=== PATIENT | female | born 1940 | race Caucasian/White ===

== ENCOUNTER 2017-12-01 08:56 | Emergency (ER) | payer OTHER ==
--- OUTSIDE RECORDS SUMMARY | 2017-12-01 08:59 | XMS REPORT | Clinical Summary ---
:1940 Author Organization [facility] Address [address] [place] [address] Care Team Providers Name Role Phone Brice Juan MD Primary Care Provider Unavailable Allergies Not on File Current Medications Not on file Active Problems Not on file Encounters Date Type Specialty Care Team Description 02/01/2017 Hospital Encounter Radiology Arian Robles MD Other specified injuries of lower back, initial encounter 02/01/2017 Hospital Encounter Radiology Arian Robels MD Other specified injuries of lower back, initial encounter 02/01/2017 Hospital Encounter Radiology Arian Robles MD Other specified injuries of lower back, initial encounter 01/31/2017 Procedure Pass Radiology 01/31/2017 Transcribe Orders Access Arian Robles MD Other specified injuries of lower back, initial encounter (Primary Dx) 12/07/2016 Hospital Encounter Radiology Daniel De Santiago Left wrist pain MD Landon 12/07/2016 Transcribe Orders Access Daniel De Santiago Left wrist pain ( Primary MD Landon Dx) after 11/30/2016 Social History Tobacco Use Types Packs/Day Years Used Date Never Assessed Sex Assigned at Date Recorded Not on file Last Filed Vital Signs Not on file Plan of Treatment Health Maintenance Due Date Last Done Comments SHINGRIX VACCINE (#1) 1989 ZOSTER VACCINE 1999 PNEUMOCOCCAL POLYSACCHARIDE VACCINE AGE 65 AND OVER 2004 PNEUMOCOCCAL-13 2004 INFLUENZA VACCINE 11/15/2017 Procedures Procedure Name Priority Date/Time Associated Diagnosis Comments MRI LUMBAR SPINE WO Routine 02/01/2017 8:37 AM Other specified Results for this CONTRAST CDT injuries of lower procedure are in back, initial the results encounter section. XR LUMBAR SPINE AP Routine 02/01/2017 7:45 AM Other specified Results for this LATERAL FLEXION CDT injuries of lower procedure are in AND EXTENSION back, initial the results encounter section. XR THORACIC SPINE 3 Routine 02/01/2017 7:45 AM Other specified Results for this VW CDT injuries of lower procedure are in back, initial the results encounter section. XR WRIST 3+ VW LEFT Routine 12/07/2016 12:33 PM Left wrist pain Results for this CDT procedure are in the results section. after 11/30/2016 Results MRI Lumbar Spine Wo Contrast (02/01/2017 8:37 AM) Narrative Performed At EXAMINATION:MRI LUMBAR SPINE WO CONTRAST [facility] CLINICAL HISTORY:S39.82XA Other specified injuries of lower backinitial encounter, LOW BACK INJURY COMPARISON:None. TECHNIQUE: Examination performed on a GE 3 Liza magnet Sagittal and axial scans obtained. Multiple pulse sequences utilized. A total of 379 images obtained. FINDINGS: There is a severe wedge compression at T12 there is marked depression of the superior endplate with vertebral plana deformity evident from mid body to anterior body level. No significant marrow edema is present in keeping with chronic injury. There is considerable kyphotic angulation epicenter at T11-T12 Remaining lumbar vertebral bodies are well-maintained without compression narrowing infiltration or edema. The conus is at L1 level. There is moderate impression on the thecal sac at T11-12. Increased signal within the cord in keeping with myelomalacia. No cord enlargement. L5-S1: No disc herniation. No central stenosis or foraminal encroachment. Mild bilateral facet hypertrophy. L4-5: No disc herniation. No central stenosis or foraminal encroachment. No significant facet hypertrophy. L3-4: No disc herniation. No central stenosis or foraminal encroachment. Slight bilateral facet hypertrophy. L2-3: No disc herniation. No central stenosis or foraminal encroachment. Slight bilateral facet hypertrophy. L1-2: No disc herniation. No central stenosis or foraminal encroachment. T12-L1: No disc herniation. No central stenosis or foraminal encroachment. T11-T12: Moderate posterior impression on the thecal sac secondary to 3.9 mm retropulsion superior aspect of the posterior vertebral body wall T12. There is resultant central stenosis with narrowing of the thecal sac to 8.2 mm. No focal disc herniation. No foraminal encroachment. IMPRESSION: Chronic severe compression injury at T12 with vertebral plana deformity. No marrow edema. 3.9 mm retropulsion posterior aspect of the vertebral body wall superiorly resulting in central spinal stenosis at 8.2 mm. 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 Marked kyphotic angulation at the centered at T11-12 secondary to the compression injury No other compressive abnormalities No disc herniation in the lumbar spine. No other areas of central stenosis. Mild spondylitic facet hypertrophy L3-4 and L2-3 [id number] Procedure Note Hm Interface, Radiology Results Incoming - 02/01/2017 9:05 AM CDT EXAMINATION: MRI LUMBAR SPINE WO CONTRAST CLINICAL HISTORY: S39.82XA Other specified injuries of lower back initial encounter, LOW BACK INJURY COMPARISON: None. TECHNIQUE: Examination performed on a GE 3 Liza magnet Sagittal and axial scans obtained. Multiple pulse sequences utilized. A total of 379 images obtained. FINDINGS: There is a severe wedge compression at T12 there is marked depression of the superior endplate with vertebral plana deformity evident from mid body to anterior body level. No significant marrow edema is present in keeping with chronic injury. There is considerable kyphotic angulation epicenter at T11-T12 Remaining lumbar vertebral bodies are well-maintained without compression narrowing infiltration or edema. The conus is at L1 level. There is moderate impression on the thecal sac at T11 -12. Increased signal within the cord in keeping with myelomalacia. No cord enlargement. L5-S1: No disc herniation. No central stenosis or foraminal encroachment. Mild bilateral facet hypertrophy. L4-5: No disc herniation. No central stenosis or foraminal encroachment. No significant facet hypertrophy. L3-4: No disc herniation. No central stenosis or foraminal encroachment. Slight bilateral facet hypertrophy. L2-3: No disc herniation. No central stenosis or foraminal encroachment. Slight bilateral facet hypertrophy. L1-2: No disc herniation. No central stenosis or foraminal encroachment. T12-L1: No disc herniation. No central stenosis or foraminal encroachment. T11-T12: Moderate posterior impression on the thecal sac secondary to 3.9 mm retropulsion superior aspect of the posterior vertebral body wall T12. There is resultant central stenosis with narrowing of the thecal sac to 8.2 mm. No focal disc herniation. No foraminal encroachment. IMPRESSION: Chronic severe compression injury at T12 with vertebral plana deformity. No marrow edema. 3.9 mm retropulsion posterior aspect of the vertebral body wall superiorly resulting in central spinal stenosis at 8.2 mm. 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 Marked kyphotic angulation at the centered at T11-12 secondary to the compression injury No other compressive abnormalities No disc herniation in the lumbar spine. No other areas of central stenosis. Mild spondylitic facet hypertrophy L3-4 and L2-3 [id number] Performing Organization Address [facility] Phone Number [facility] [address] [place] [address] XR Lumbar Spine Ap Lateral Flexion And Extension (02/01/2017 7:45 AM) Narrative Performed At EXAMINATION:XR LUMBAR SPINE AP LATERALFLEXION AND EXTENSION [facility] CLINICAL HISTORY:S39.82XA Other specified injuries of lower backinitial encounter, s39.82xa COMPARISON:None. FINDINGS: For review examination of the lumbar spine obtained. Standing AP, lateral, flexion, and extension views obtained. Severe anterior wedge compression deformity at T12 with near vertebral plana. There is marked kyphotic angulation at that level Diffuse underlying osteoporosis. No spondylolisthesis. No instability on flexion or extension IMPRESSION: Near vertebral plana deformity at T12 with marked kyphotic angulation at that level Diffuse underlying osteoporosis No spondylolisthesis Atherosclerosis [id number] Procedure Note Interface, Radiology Results Incoming - 02/01/2017 8:11 AM CDT EXAMINATION: XR LUMBAR SPINE AP LATERAL FLEXION AND EXTENSION CLINICAL HISTORY: S39.82XA Other specified injuries of lower back initial encounter, s39.82xa COMPARISON: None. FINDINGS: For review examination of the lumbar spine obtained. Standing AP, lateral, flexion, and extension views obtained. Severe anterior wedge compression deformity at T12 with near vertebral plana. There is marked kyphotic angulation at that level Diffuse underlying osteoporosis. No spondylolisthesis. No instability on flexion or extension IMPRESSION: Near vertebral plana deformity at T12 with marked kyphotic angulation at that level Diffuse underlying osteoporosis No spondylolisthesis Atherosclerosis [id number] Performing Organization Address [facility] Phone Number [facility] [address] [place] [address] XR Thoracic Spine 3 Vw (02/01/2017 7:45 AM) Narrative Performed At EXAMINATION:XR THORACIC SPINE 3 VW [facility] CLINICAL HISTORY:S39.82XA Other specified injuries of lower backinitial encounter, s29.82xa COMPARISON:None. FINDINGS: Standing 3 view examination of the thoracic spine performed. Patient is osteoporotic. Severe anterior wedge compression deformity with vertebral plana at T12. Marked kyphotic angulation at this level. Moderately severe anterior wedge compression deformity at T7 No lytic or blastic bone lesions Moderately large hiatal hernia Diffuse atherosclerosis No other compressive abnormality. Diffuse underlying osteoporosis. IMPRESSION: Marked kyphotic angulation epicentered at T12 where there is vertebral plana compressive deformity Moderate to severe compressive deformity with anterior wedging at T9 Underlying osteoporosis Atherosclerosis. Moderately large hiatal hernia. Humeral prosthesis left [id number] Procedure Note Interface, Radiology Results Incoming - 02/01/2017 8:16 AM CDT EXAMINATION: XR THORACIC SPINE 3 VW CLINICAL HISTORY: S39.82XA Other specified injuries of lower back initial encounter, s29.82xa COMPARISON: None. FINDINGS: Standing 3 view examination of the thoracic spine performed. Patient is osteoporotic. Severe anterior wedge compression deformity with vertebral plana at T12. Marked kyphotic angulation at this level. Moderately severe anterior wedge compression deformity at T7 No lytic or blastic bone lesions Moderately large hiatal hernia Diffuse atherosclerosis No other compressive abnormality. Diffuse underlying osteoporosis. IMPRESSION: Marked kyphotic angulation epicentered at T12 where there is vertebral plana compressive deformity Moderate to severe compressive deformity with anterior wedging at T9 Underlying osteoporosis Atherosclerosis. Moderately large hiatal hernia. Humeral prosthesis left [id number] Performing Organization Address City/State/Zipcode Phone Number [facility] [address] [place] [address] XR Wrist 3+ Vw Left (12/07/2016 12:33 PM) Narrative Performed At EXAMINATION:XR WRIST 3VW LEFT [facility] CLINICAL HISTORY:M25.532 Pain in left wrist, BONE PAINWRIST COMPARISON:None. Left wrist: AP, lateral views: The bones are severely and diffusely osteopenic. There is an apparent healed or healing mildly impacted distal radial fracture with some sclerosis along the fracture line. There is minimal associated soft tissue swelling. No other significant findings are noted. The bones are osteopenic. IMPRESSION: Healing fracture as noted. [id number] Procedure Note Hm Interface, Radiology Results Incoming - 12/07/2016 1:38 PM CDT EXAMINATION: XR WRIST 3 VW LEFT CLINICAL HISTORY: M25.532 Pain in left wrist, BONE PAIN WRIST COMPARISON: None. Left wrist: AP, lateral views: The bones are severely and diffusely osteopenic. There is an apparent healed or healing mildly impacted distal radial fracture with some sclerosis along the fracture line. There is minimal associated soft tissue swelling. No other significant findings are noted. The bones are osteopenic. IMPRESSION: Healing fracture as noted. [id number] Performing Organization Address City/State/Zipcode Phone Number [facility] [address] [place] [address] after 11/30/2016 Insurance Payer Benefit Plan / Group Subscriber ID Type Phone Address [facility] xxxxxxxxxxx [phone] [place], [place] [phone]
[2017-12-01 10:27] LABS: Urine Bacteria LOADED /HPF (<20); Urine Culture Reflex Order REFLEXED; Urine RBC <5 /HPF (NONE SEEN)
[2017-12-01 10:29] LABS: Urine Blood 1+ (NEG); Urine Glucose TRACE (NEG); Urine Protein 1+ (NEG)
--- NOTE | 2017-12-01 10:40 | ER ---
Nurse's Notes [facility] Name: Haydee De Jesus Age: 77 yrs Sex: Female : 1940 Arrival Date: 12/01/2017 Time: 08:59 Bed 16 Private MD: out of town, doctor Diagnosis: Cystitis Presentation: 12/01 09:14 Presenting complaint: Patient states: i feel i have UTI since Monday of this week, hj it godoy when i pee, denies fever and chills; reports taking Azo, and couldn't get an appointment to her PCP;. Transition of care: patient was not received from another setting of care. Onset of symptoms was December 01, 2017. Risk Assessment: Do you want to hurt yourself or someone else? Patient reports no desire to harm self or others. Initial Sepsis Screen: Does the patient meet any 2 criteria? No. Patient's initial sepsis screen is negative. Does the patient have a suspected source of infection? No. Patient's initial sepsis screen is negative. Care prior to arrival: None. 09:14 Method Of Arrival: Ambulatory 09:14 Acuity: JOYCELYN 4 hj Triage Assessment: 09:20 General: Appears in no apparent distress. uncomfortable, Behavior is calm, cooperative, hj appropriate for age. Pain: Complains of pain in suprapubic area. Historical: - Allergies: 09:18 Sulfa (Sulfonamide Antibiotics); hj - Home Meds: 09:18 pantoprazole 40 mg Oral TbEC 1 tab 2 times per day [Active]; Synthroid 50 mcg Oral tab hj 1 tab once daily [Active]; meloxicam 15 mg oral tab 1 tab once daily [Active]; metformin 500 mg Oral Tb24 1 tab 2 times per day [Active]; simvastatin 20 mg Oral tab 1 tab once daily [Active]; benazepril 10 mg oral tab 1 tab once daily [Active]; alendronate 70 mg/75 mL oral soln 75 mL once wkly [Active]; paroxetine HCl 10 mg oral tab 1 tab once daily [Active]; sucralfate 1 gram Oral tab 1 tab 4 times per day [Active]; 09:19 metoprolol tartrate 50 mg Oral tab 1 tab 2 times per day [Active]; omeprazole 20 mg hj Oral cpDR 1 cap once daily [Active]; - PMHx: 09:18 Diabetes - NIDDM; Hyperlipidemia; Hypertension; Hypothyroidism; hj - PSHx: 09:18 left arm; Appendectomy; bladder surgery; hj - Immunization history:: Adult Immunizations up to date. - Social history:: Smoking status: Patient/guardian denies using tobacco, Patient/guardian denies using alcohol. - Ebola Screening: : Patient negative for fever greater than or equal to 101.5 degrees Fahrenheit, and additional compatible Ebola Virus Disease symptoms Patient denies exposure to infectious person Patient denies travel to an Ebola-affected area in the 21 days before illness onset. Screenin:19 Abuse screen: Denies threats or abuse. Denies injuries from another. Nutritional hj screening: No deficits noted. Tuberculosis screening: No symptoms or risk factors identified. Fall Risk None identified. Assessment: 09:21 General: Appears in no apparent distress. uncomfortable, Behavior is calm, cooperative, hj appropriate for age. Pain: Complains of pain in pelvis and suprapubic area Pain currently is 5 out of 10 on a pain scale. Neuro: Level of Consciousness is awake, alert, obeys commands, Oriented to person, place, time, situation, Appropriate for age. Cardiovascular: Capillary refill < 3 seconds Patient's skin is warm and dry. Respiratory: Airway is patent Respiratory effort is even, unlabored, Respiratory pattern is regular, symmetrical. GI: No signs and/or symptoms were reported involving the gastrointestinal system. : Urine is Reports burning with urination, pain. EENT: No signs and/or symptoms were reported regarding the EENT system. Derm: No signs and/or symptoms reported regarding the dermatologic system. Musculoskeletal: No signs and/or symptoms reported regarding the musculoskeletal system. Vital Signs: 09:20 BP 145 / 69; Pulse 87; Resp 18; Temp 98.2(O); Pulse Ox 100% on R/A; Weight 50.8 kg; hj Height 5 ft. 4 in. (162.56 cm); Pain 5/10; 09:20 Body Mass Index 19.22 (50.80 kg, 162.56 cm) ED Course: 08:59 Patient arrived in ED. mr 08:59 out of town, doctor is Private Physician. mr 09:07 Toni Trimble MD is Attending Physician. 09:13 Raza, Jer, RN is Primary Nurse. 09:15 Triage completed. hj 09:20 Arm band placed on right wrist. hj 09:20 Patient has correct armband on for positive identification. Bed in low position. Call light in reach. Side rails up X 1. Adult w/ patient. 09:22 Urine Microscopic Only Sent. hj 10:55 No provider procedures requiring assistance completed. Patient did not have IV access hj during this emergency room visit. Administered Medications: No medications were administered Outcome: 10:40 Discharge ordered by . 10:56 Discharged to home ambulatory, with family. 10:56 Condition: stable 10:56 Discharge instructions given to patient, family, Instructed on discharge instructions, follow up and referral plans. medication usage, Demonstrated understanding of instructions, follow-up care, medications, Prescriptions given X 1. 10:58 Patient left the ED. Addendum: 12/04/2017 07:24 Addendum: Culture Results: Positive urine culture. No further action required. Bacteria b b sensitive to prescribed antibiotic. Signatures: Princess Rader Brenda, RN RN bb Joaquin, Henry, RN RN hj Starr, Gregory, MD MD
--- NOTE | 2017-12-01 10:41 | EDPHYS ---
Physician Documentation [facility] Name: Haydee De Jesus Age: 77 yrs Sex: Female : 1940 Arrival Date: 12/01/2017 Time: 08:59 Bed 16 Private MD: out of town, doctor ED Physician Toni Trimble HPI: 12/01 10:30 This 77 yrs old Female presents to ER via Ambulatory with complaints of gs Urinary Problem. 10:30 The patient presents with urinary symptoms, dysuria, urgency. Onset: The gs symptoms/episode began/occurred 2 day(s) ago. Modifying factors: the symptoms are aggravated by urinating. Associated signs and symptoms: Pertinent negatives: fever. Severity of symptoms: At their worst the symptoms were moderate, in the emergency department the symptoms are unchanged. The patient has experienced similar episodes in the past, a few times. Historical: - Allergies: 09:18 Sulfa (Sulfonamide Antibiotics); hj - Home Meds: 09:18 pantoprazole 40 mg Oral TbEC 1 tab 2 times per day [Active]; Synthroid 50 mcg Oral tab hj 1 tab once daily [Active]; meloxicam 15 mg oral tab 1 tab once daily [Active]; metformin 500 mg Oral Tb24 1 tab 2 times per day [Active]; simvastatin 20 mg Oral tab 1 tab once daily [Active]; benazepril 10 mg oral tab 1 tab once daily [Active]; alendronate 70 mg/75 mL oral soln 75 mL once wkly [Active]; paroxetine HCl 10 mg oral tab 1 tab once daily [Active]; sucralfate 1 gram Oral tab 1 tab 4 times per day [Active]; 09:19 metoprolol tartrate 50 mg Oral tab 1 tab 2 times per day [Active]; omeprazole 20 mg hj Oral cpDR 1 cap once daily [Active]; - PMHx: 09:18 Diabetes - NIDDM; Hyperlipidemia; Hypertension; Hypothyroidism; hj - PSHx: 09:18 left arm; Appendectomy; bladder surgery; hj - Immunization history:: Adult Immunizations up to date. - Social history:: Smoking status: Patient/guardian denies using tobacco, Patient/guardian denies using alcohol. - Ebola Screening: : Patient negative for fever greater than or equal to 101.5 degrees Fahrenheit, and additional compatible Ebola Virus Disease symptoms Patient denies exposure to infectious person Patient denies travel to an Ebola-affected area in the 21 days before illness onset. ROS: 10:30 All other systems are negative. gs Exam: 10:30 Head/Face: Normocephalic, atraumatic. Eyes: Pupils equal round and reactive to light, gs extra-ocular motions intact. Lids and lashes normal. Conjunctiva and sclera are non-icteric and not injected. Cornea within normal limits. Periorbital areas with no swelling, redness, or edema. ENT: Nares patent. No nasal discharge, no septal abnormalities noted. Tympanic membranes are normal and external auditory canals are clear. Oropharynx with no redness, swelling, or masses, exudates, or evidence of obstruction, uvula midline. Mucous membranes moist. Neck: Trachea midline, no thyromegaly or masses palpated, and no cervical lymphadenopathy. Supple, full range of motion without nuchal rigidity, or vertebral point tenderness. No Meningismus. Chest/axilla: Normal chest wall appearance and motion. Nontender with no deformity. No lesions are appreciated. Cardiovascular: Regular rate and rhythm with a normal S1 and S2. No gallops, murmurs, or rubs. Normal PMI, no JVD. No pulse deficits. Respiratory: Lungs have equal breath sounds bilaterally, clear to auscultation and percussion. No rales, rhonchi or wheezes noted. No increased work of breathing, no retractions or nasal flaring. Back: No spinal tenderness. No costovertebral tenderness. Full range of motion. Skin: Warm, dry with normal turgor. Normal color with no rashes, no lesions, and no evidence of cellulitis. MS/ Extremity: Pulses equal, no cyanosis. Neurovascular intact. Full, normal range of motion. Neuro: Awake and alert, GCS 15, oriented to person, place, time, and situation. Cranial nerves II-XII grossly intact. Motor strength 5/5 in all extremities. Sensory grossly intact. Cerebellar exam normal. Normal gait. 10:30 Constitutional: The patient appears alert, awake, comfortable. 10:30 Abdomen/GI: Palpation: mild abdominal tenderness, in the suprapubic area. Vital Signs: 09:20 BP 145 / 69; Pulse 87; Resp 18; Temp 98.2(O); Pulse Ox 100% on R/A; Weight 50.8 kg; Height 5 ft. 4 in. (162.56 cm); Pain 08/24; 09:20 Body Mass Index 19.22 (50.80 kg, 162.56 cm) MDM: 09:29 Patient medically screened. gs 10:30 Differential diagnosis: nonspecific abdominal pain, urinary tract infection. Data gs reviewed: vital signs, nurses notes. Counseling: I had a detailed discussion with the patient and/or guardian regarding: the historical points, exam findings, and any diagnostic results supporting the discharge/admit diagnosis, lab results. Response to treatment: the patient's symptoms have mildly improved after treatment, and as a result, I will discharge patient. 12/01 09:17 Order name: Urine Microscopic Only; Complete Time: 10:41 gs 12/01 09:34 Order name: Urine Dipstick--Ancillary (enter results); Complete Time: 10:41 ag 12/01 09:17 Order name: Urine Dipstick-Ancillary (obtain specimen); Complete Time: 09:22 12/01 10:29 Order name: Urine Culture EDMS Administered Medications: No medications were administered Disposition: 12/01/17 10:40 Discharged to Home. Impression: Cystitis. - Condition is Stable. - Discharge Instructions: Urinary Tract Infection, Adult. - Prescriptions for Macrobid 100 mg Oral Capsule - take 1 capsule by ORAL route every 12 hours for 7 days; 14 capsule. - Medication Reconciliation Form, Thank You Letter, Antibiotic Education, Prescription Opioid Use form. - Follow up: Private Physician; When: 2 - 3 days; Reason: Re-evaluation by your physician. Signatures: Dispatcher [facility] Jer Person RN RN hj Starr, Gregory, MD MD Corrections: (The following items were deleted from the chart) 10:58 10:40 12/01/2017 10:40 Discharged to Home. Impression: Cystitis. Condition is Stable. hj Forms are Medication Reconciliation Form, Thank You Letter, Antibiotic Education, Prescription Opioid Use. Follow up: Private Physician; When: 2 - 3 days; Reason: Re-evaluation by your physician. gs
[2017-12-01 11:07] VITALS: BP 145/69; TEMP 98.2; O2SAT 100
== END 2017-12-01 10:58 | disposition home or self-care (01) ==
LOC: ER 08:56
DX: N30.90 Cystitis, unspecified without hematuria (principal); I10 Essential (primary) hypertension; E11.9 Type 2 diabetes mellitus without complications; E03.9 Hypothyroidism, unspecified; E78.5 Hyperlipidemia, unspecified; Z88.2 Allergy status to sulfonamides
CPT/HCPCS: 81003; 81015; 87077; 87086; 87088; 87186; 99283

== ENCOUNTER 2018-07-06 09:27 | Emergency (ER) | payer OTHER ==
--- OUTSIDE RECORDS SUMMARY | 2018-07-06 09:30 | XMS REPORT | Clinical Summary ---
:1940 Author Organization [facility] Address [address] [place] [address] Care Team Providers Name Role Phone Brice Juan MD Primary Care Provider Unavailable Allergies Not on File Medications Not on file Active Problems Not on file Encounters Date Type Specialty Care Team Description 06/07/2018 Hospital Encounter Radiology Brice Juan MD Senile osteoporosis 06/05/2018 Transcribe Orders Access Brice Juan MD Senile osteoporosis ( Primary Dx) after 07/05/2017 Social History Tobacco Use Types Packs/Day Years Used Date Never Assessed Sex Assigned at Date Recorded Not on file Job Start Date Occupation Industry Not on file Not on file Not on file Travel History Travel Start Travel End No recent travel history available. Last Filed Vital Signs Not on file Plan of Treatment Health Maintenance Due Date Last Done Comments SHINGLES VACCINES (#1) 1989 65+ PNEUMOCOCCAL VACCINE (1 of 2 - PCV13) 2004 PNEUMOCOCCAL POLYSACCHARIDE VACCINE AGE 65 AND OVER 2004 INFLUENZA VACCINE 11/15/2017 Procedures Procedure Name Priority Date/Time Associated Diagnosis Comments BONE DENSITY Routine 06/07/2018 9:42 AM Senile osteoporosis Results for this ACCOUNTING SYSTEM EXPERT procedure are in the results section. after 07/05/2017 Results Bone Density (06/07/2018 9:42 AM ACCOUNTING SYSTEM EXPERT) Narrative Performed At EXAMINATION:BONE DENSITY [facility] CLINICAL HISTORY:M81.0 Age-related osteoporosis without current pathological fracture, M81.0.Osteoporosis screening. COMPARISON:None. The results of this study expressed as bone mineral density (BMD) were as follows: AP spine (L1- L4) BMD:0.602g/cm2 T-Score: -4.0 Right Femur (Total Mean): BMD: 0.347g/cm2 T-Score: -4.5 Left Femur (Total Mean): BMD: 0.354g/cm2 T-Score: -4.5 Impression: Osteoporosis lumbar spine and bilateral femurs [id number] A copy of this scans including a report detailing these results will follow. Note: The world health organization (WHO) has classified the patient's T-score as follows: Above (-1) as normal (-1) to (-2.5) as low (osteopenia) Below (-2.5) as abnormally low (osteoporosis, increased fracture risk) Procedure Note Interface, Radiology Results Incoming - 06/07/2018 12:04 PM ACCOUNTING SYSTEM EXPERT EXAMINATION: BONE DENSITY CLINICAL HISTORY: M81.0 Age-related osteoporosis without current pathological fracture, M81.0. Osteoporosis screening. COMPARISON: None. The results of this study expressed as bone mineral density (BMD) were as follows: AP spine (L1- L4) BMD: 0.602 g/cm2 T-Score: -4.0 Right Femur (Total Mean): BMD: 0.347 g/cm2 T-Score: -4.5 Left Femur (Total Mean): BMD: 0.354 g/cm2 T-Score: -4.5 Impression: Osteoporosis lumbar spine and bilateral femurs [id number] A copy of this scans including a report detailing these results will follow. Note: The world health organization (WHO) has classified the patient's T-score as follows: Above (-1) as normal (-1) to (-2.5) as low (osteopenia) Below (-2.5) as abnormally low (osteoporosis, increased fracture risk) Performing Organization Address City/State/Zipcode Phone Number [facility] [address] [place] [address] after 07/05/2017 Insurance Payer Benefit Plan / Group Subscriber ID Type Phone Address [facility] xxxxxxxxxxx (Home) [place] [address] Advance Directives Patient has advance care planning documents on file. For more information, please contact:[facility] [place] [id number]
--- NOTE | 2018-07-06 10:41 | RAD REPORT ---
EXAM DESCRIPTION: CT - Head C Spine Cap Wo Con - 07/06/2018 10:14 am TECHNIQUE: Computed axial tomography of the head and cervical spine was obtained. Coronal and sagitt al reconstruction was performed Computed axial tomography of the chest, abdomen and pelvis was obtained. Contrast was not requested. All CT scans are performed using dose optimization technique as appropriate and may include automated exposure control or mA/KV adjustment according to patient size. CLINICAL HISTORY: Head and neck injury with chest and abdominal pain status post fall COMPARISON: CT 2012 and 2016 FINDINGS: An intracranial bleed is not seen. Moderate low-density areas within periventricular, deep and subcor tical white matter unchanged probably ischemic changes secondary to small vessel disease. Old lacunar infarct left thalamus The ventricles are normal in caliber. An extra-axial fluid collection is not noted. . Fluid within the maxillary and ethmoid sinuses. Mucoperiosteal thickening sphenoid sinus. Acute and c hronic sinusitis noted A cervical fracture is not seen. No dislocation is noted. Spondylosis is present The evaluation of mediastinum, sowmya, vessels, solid organs and bowel are limited secondary to the lac k of contrast administration. A mediastinal hematoma is not noted. A pleural effusion is not seen. A lung contusion is not present. A moderate to large hiatal hernia The liver,spleen, pancreas, adrenals,kidneys and bladder do not demonstrate an acute traumatic injury Chronic compression fractures involving the vertebral bodies T7 and T12 IMPRESSION: 1. No acute intracranial abnormality is seen. 2. A cervical fracture is not visualized. If the patient continues have symptoms to suggest intracran ial/spinal cord pathology MRI be recommended 3. No traumatic abnormality involving the chest/abdomen/pelvis.
[2018-07-06 10:51] LABS: Absolute Lymphocytes (CBC) 2.4 K/uL (0.7-4.9); Absolute Monocytes 0.7 K/uL (0.1-1.3); Absolute Neutrophil 5.9 K/uL (1.8-8.0); Basophils % 0.9 % (0-1.3); Eosinophils % 6.7 % (0-4.4); Hematocrit 36.3 % (36.0-45.0); Lymphocytes % 24.2 % (15.3-44.8); MPV 6.5 fL (7.6-11.3); Monocytes % 7.5 % (3.3-12.3); RBC Red Blood Cell Count 4.02 M/uL (3.86-4.86)
[2018-07-06 11:09] LABS: Albumin 3.6 g/dL (3.4-5.0); Bilirubin Direct 0.1 mg/dL (0-0.2); Bilirubin Total 0.4 mg/dL (0.2-1.0); Protein, Total 8.3 g/dL (6.4-8.2)
--- NOTE | 2018-07-06 11:46 | EDPHYS ---
Physician Documentation [facility] Name: Haydee De Jesus Age: 78 yrs Sex: Female : 1940 Arrival Date: 07/06/2018 Time: 09:29 Bed 8 Private MD: ED Physician Chandra Lopez HPI: 07/06 10:18 This 78 yrs old Female presents to ER via Ambulatory with complaints of Fall kei Injury. 10:18 Details of fall: The patient fell from an upright position. Onset: The symptoms/episode kei began/occurred just prior to arrival. Associated injuries: The patient sustained injury to the head, upper back injury, injury to the low back, decreased range of motion, pain. Severity of symptoms: At their worst the symptoms were mild, moderate, in the emergency department the symptoms are unchanged. The patient has not experienced similar symptoms in the past. Historical: - Allergies: 09:37 Sulfa (Sulfonamide Antibiotics); iw - Home Meds: 09:37 alendronate 70 mg/75 mL Oral soln 75 mL once wkly [Active]; benazepril 10 mg Oral tab 1 iw tab once daily [Active]; meloxicam 15 mg Oral tab 1 tab once daily [Active]; metformin 500 mg Oral Tb24 1 tab 2 times per day [Active]; metoprolol tartrate 50 mg Oral tab 1 tab 2 times per day [Active]; omeprazole 20 mg Oral cpDR 1 cap once daily [Active]; pantoprazole 40 mg Oral TbEC 1 tab 2 times per day [Active]; paroxetine HCl 10 mg Oral tab 1 tab once daily [Active]; simvastatin 20 mg Oral tab 1 tab once daily [Active]; sucralfate 1 gram Oral tab 1 tab 4 times per day [Active]; Synthroid 50 mcg Oral tab 1 tab once daily [Active]; - PMHx: 09:37 Diabetes - NIDDM; Hyperlipidemia; Hypertension; Hypothyroidism; iw - PSHx: 09:37 left arm; Appendectomy; bladder surgery; iw - Immunization history: Last tetanus immunization:. - Social history:: Smoking status: . - Ebola Screening: : Patient denies travel to an Ebola-affected area in the 21 days before illness onset. - Family history:: not pertinent. ROS: 10:18 Constitutional: Negative for fever, chills, and weight loss, Eyes: Negative for injury, kei pain, redness, and discharge, ENT: Negative for injury, pain, and discharge, Neck: Negative for injury, pain, and swelling, Cardiovascular: Negative for chest pain, palpitations, and edema, Respiratory: Negative for shortness of breath, cough, wheezing, and pleuritic chest pain, Abdomen/GI: Negative for abdominal pain, nausea, vomiting, diarrhea, and constipation, : Negative for injury, bleeding, discharge, and swelling, MS/Extremity: Negative for injury and deformity, Skin: Negative for injury, rash, and discoloration, Neuro: Negative for headache, weakness, numbness, tingling, and seizure, Psych: Negative for depression, anxiety, suicide ideation, homicidal ideation, and hallucinations, Allergy/Immunology: Negative for hives, rash, and allergies, Endocrine: Negative for neck swelling, polydipsia, polyuria, polyphagia, and marked weight changes, Hematologic/Lymphatic: Negative for swollen nodes, abnormal bleeding, and unusual bruising. Exam: 10:27 Constitutional: This is a well developed, well nourished patient who is awake, alert, kei and in no acute distress. Head/Face: Normocephalic, atraumatic. Eyes: Pupils equal round and reactive to light, extra-ocular motions intact. Lids and lashes normal. Conjunctiva and sclera are non-icteric and not injected. Cornea within normal limits. Periorbital areas with no swelling, redness, or edema. ENT: Nares patent. No nasal discharge, no septal abnormalities noted. Tympanic membranes are normal and external auditory canals are clear. Oropharynx with no redness, swelling, or masses, exudates, or evidence of obstruction, uvula midline. Mucous membranes moist. Neck: Trachea midline, no thyromegaly or masses palpated, and no cervical lymphadenopathy. Supple, full range of motion without nuchal rigidity, or vertebral point tenderness. No Meningismus. Chest/axilla: Normal chest wall appearance and motion. Nontender with no deformity. No lesions are appreciated. Cardiovascular: Regular rate and rhythm with a normal S1 and S2. No gallops, murmurs, or rubs. Normal PMI, no JVD. No pulse deficits. Respiratory: Lungs have equal breath sounds bilaterally, clear to auscultation and percussion. No rales, rhonchi or wheezes noted. No increased work of breathing, no retractions or nasal flaring. Abdomen/GI: Soft, non-tender, with normal bowel sounds. No distension or tympany. No guarding or rebound. No evidence of tenderness throughout. Female : Normal external genitalia. Skin: Warm, dry with normal turgor. Normal color with no rashes, no lesions, and no evidence of cellulitis. MS/ Extremity: Pulses equal, no cyanosis. Neurovascular intact. Full, normal range of motion. Neuro: Awake and alert, GCS 15, oriented to person, place, time, and situation. Cranial nerves II-XII grossly intact. Motor strength 5/5 in all extremities. Sensory grossly intact. Cerebellar exam normal. Normal gait. Psych: Awake, alert, with orientation to person, place and time. Behavior, mood, and affect are within normal limits. 10:27 Back: pain, that is mild, ROM is painful, normal spinal alignment noted, CVA tenderness, is noted on the left, vertebral tenderness, is not appreciated, muscle spasm, is appreciated in the left low back and left mid back. Vital Signs: 09:37 BP 160 / 81; Pulse 98; Resp 16; Temp 98.1; Pulse Ox 98% on R/A; Weight 50.35 kg; Height iw 5 ft. (152.40 cm); Pain 10/10; 10:45 BP 182 / 72; Pulse 76; Resp 16; Pulse Ox 96% on R/A; hb 12:01 BP 162 / 79; Pulse 88; Resp 17; Pulse Ox 99% on R/A; tw2 09:37 Body Mass Index 21.68 (50.35 kg, 152.40 cm) Castillo Coma Score: 09:37 Eye Response: spontaneous(4). Verbal Response: oriented(5). Motor Response: obeys commands(6). Total: 15. Trauma Score (Adult): 09:37 Eye Response: spontaneous(1); Verbal Response: oriented(1); Motor Response: obeys commands(2); Systolic BP: > 89 mm Hg(4); Respiratory Rate: 10 to 29 per min(4); [place] Score: 15; Trauma Score: 12 MDM: 09:40 Patient medically screened. [facility] 10:27 Data reviewed: vital signs, nurses notes, lab test result(s), EKG, radiologic studies. [facility] 07/06 09:48 Order name: Basic Metabolic Panel; Complete Time: 11:45 [facility] 07/06 09:48 Order name: CBC with Diff; Complete Time: 11:03 [facility] 07/06 09:48 Order name: Creatinine for Radiology; Complete Time: 11:45 [facility] 07/06 09:48 Order name: Type And Screen; Complete Time: 11:45 [facility] 07/06 09:48 Order name: Lipase; Complete Time: 11:45 [facility] 07/06 09:48 Order name: LFT's; Complete Time: 11:45 [facility] 07/06 09:48 Order name: CT Traumagram (Head C Spine CAP wo con); Complete Time: 11:03 [facility] 07/06 09:48 Order name: Labs collected and sent; Complete Time: 10:41 [facility] 07/06 09:48 Order name: Urine Culture [facility] 07/06 09:48 Order name: Urine Dipstick-Ancillary (obtain specimen); Complete Time: 10:41 [facility] 07/06 11:55 Order name: Urine Dipstick--Ancillary (enter results) [id number] Administered Medications: 10:50 Drug: NS 0.9% 500 ml Route: IV; Rate: bolus; Site: right antecubital; hb 12:03 Follow up: Response: No adverse reaction; IV Status: Completed infusion; IV Intake: tw2 500ml 11:56 Not Given (Duplicate Order; discharged ordered.): NS 0.9% 1000 ml IV at 125 ml/hr tw2 continuous Disposition: 07/06/18 11:46 Discharged to Home. Impression: Fall due to bumping against object, Contusion of back wall of thorax, Type 2 diabetes mellitus. - Condition is Stable. - Discharge Instructions: Contusion, Type 2 Diabetes Mellitus, Diagnosis, Adult, Contusion, [id number], Fall Prevention in the Home, Arht-da-Bdpr, Type 2 Diabetes Mellitus, Diagnosis, Adult, [id number]. - Prescriptions for Tylenol- Codeine #3 300-30 mg Oral Tablet - take 1 tablet by ORAL route every 6 hours As needed; 26 tablet. - Medication Reconciliation Form, Thank You Letter, Antibiotic Education, Prescription Opioid Use form. - Follow up: Private Physician; When: 2 - 3 days; Reason: Recheck today's complaints, Continuance of care, Re-evaluation by your physician. - Problem is new. - Symptoms have improved. Signatures: Dispatcher [employer] [facility] Chandra Lopez MD MD cha Williams, Irene, RN RN iw Baxter, Heather, RN RN hb Wise, Tara, RN RN tw2 Corrections: (The following items were deleted from the chart) 11:46 11:46 07/06/2018 11:46 Discharged to Home. Impression: Fall due to bumping against kei object; Contusion of back wall of thorax. Condition is Stable. Discharge Instructions: Contusion, Contusion, Mexv-zp-Pqjh, Fall Prevention in the Home, Otne-gn-Alhb. Prescriptions for Tylenol-Codeine #3 300-30 mg Oral Tablet - take 1 tablet by ORAL route every 6 hours As needed; 26 tablet. and Forms are Medication Reconciliation Form, Thank You Letter, Antibiotic Education, Prescription Opioid Use. Follow up: Private Physician; When: 2 - 3 days; Reason: Recheck today's complaints, Continuance of care, Re-evaluation by your physician. Problem is new. Symptoms have improved. [facility] 12:01 11:05 [id number] ordered. [facility] 12:02 11:46 07/06/2018 11:46 Discharged to Home. Impression: Fall due to bumping against tw2 object; Contusion of back wall of thorax; Type 2 diabetes mellitus. Condition is Stable. Discharge Instructions: Contusion, Contusion, [id number], Fall Prevention in the Home, Ijva-ai-Madf. Prescriptions for Tylenol-Codeine #3 300-30 mg Oral Tablet - take 1 tablet by ORAL route every 6 hours As needed; 26 tablet. and Forms are Medication Reconciliation Form, Thank You Letter, Antibiotic Education, Prescription Opioid Use. Follow up: Private Physician; When: 2 - 3 days; Reason: Recheck today's complaints, Continuance of care, Re-evaluation by your physician. Problem is new. Symptoms have improved. [facility]
--- NOTE | 2018-07-06 11:46 | ER ---
Nurse's Notes [facility] Name: Haydee De Jesus Age: 78 yrs Sex: Female : 1940 Arrival Date: 07/06/2018 Time: 09:29 Bed 8 Private MD: Diagnosis: Fall due to bumping against object;Contusion of back wall of thorax;Type 2 diabetes mellitus Presentation: 07/06 09:33 Presenting complaint: Patient states: was knocked over by a big dog and fell to her iw bottom, also hit against a wall, now has pain to left side, left hip, and ribs, hit head on wall, denies LOC, not on blood thinners, ambulatory, injury occurred on Monday. Care prior to arrival: None. Mechanism of Injury: Fall from standing position. Trauma event details: Injury occurred in the [facility]. 09:33 Acuity: JOYCELYN 4 iw 09:33 Method Of Arrival: Ambulatory iw 09:35 Trauma event details: Injury occurred: July 04, 2018. iw 09:38 Transition of care: patient was not received from another setting of care. Onset of iw symptoms was July 04, 2018. Risk Assessment: Do you want to hurt yourself or someone else? Patient reports no desire to harm self or others. Initial Sepsis Screen: Does the patient meet any 2 criteria? No. Patient's initial sepsis screen is negative. Does the patient have a suspected source of infection? No. Patient's initial sepsis screen is negative. Trauma Activation: Not Applicable Physician: ED Physician; Name: ; Notified At: ; Arrived At: Physician: General Surgeon; Name: ; Notified At: ; Arrived At: Physician: Radiology; Name: ; Notified At: ; Arrived At: Physician: Respiratory; Name: ; Notified At: ; Arrived At: Physician: Lab; Name: ; Notified At: ; Arrived At: Historical: - Allergies: 09:37 Sulfa (Sulfonamide Antibiotics); iw - Home Meds: 09:37 alendronate 70 mg/75 mL Oral soln 75 mL once wkly [Active]; benazepril 10 mg Oral tab 1 iw tab once daily [Active]; meloxicam 15 mg Oral tab 1 tab once daily [Active]; metformin 500 mg Oral Tb24 1 tab 2 times per day [Active]; metoprolol tartrate 50 mg Oral tab 1 tab 2 times per day [Active]; omeprazole 20 mg Oral cpDR 1 cap once daily [Active]; pantoprazole 40 mg Oral TbEC 1 tab 2 times per day [Active]; paroxetine HCl 10 mg Oral tab 1 tab once daily [Active]; simvastatin 20 mg Oral tab 1 tab once daily [Active]; sucralfate 1 gram Oral tab 1 tab 4 times per day [Active]; Synthroid 50 mcg Oral tab 1 tab once daily [Active]; - PMHx: 09:37 Diabetes - NIDDM; Hyperlipidemia; Hypertension; Hypothyroidism; iw - PSHx: 09:37 left arm; Appendectomy; bladder surgery; iw - Immunization history: Last tetanus immunization:. - Social history:: Smoking status: . - Ebola Screening: : Patient denies travel to an Ebola-affected area in the 21 days before illness onset. - Family history:: not pertinent. Screenin:42 Abuse screen: Denies injuries from another. Nutritional screening: No deficits noted. tw2 Tuberculosis screening: No symptoms or risk factors identified. Fall Risk Secondary diagnosis (15 points) impaired mobility. Assessment: 09:44 General: Appears in no apparent distress. well groomed, Behavior is calm, cooperative, tw2 appropriate for age. Pain: Complains of pain in LEFT shoulder, ribs, and hip. Neuro: Level of Consciousness is awake, alert, obeys commands, Oriented to person, place, time, situation. Cardiovascular: Patient's skin is warm and dry. 10:30 Reassessment: Patient appears in no apparent distress at this time. No changes from hb previously documented assessment. Patient and/or family updated on plan of care and expected duration. Pain level reassessed. Patient is alert, oriented x 3, equal unlabored respirations, skin warm/dry/pink. 11:05 Reassessment: Pt up to bathroom via wheelchair with nurse. hb 12:00 Reassessment: Patient appears in no apparent distress at this time. No changes from tw2 previously documented assessment. Patient and/or family updated on plan of care and expected duration. Pain level reassessed. Patient is alert, oriented x 3, equal unlabored respirations, skin warm/dry/pink. Vital Signs: 09:37 BP 160 / 81; Pulse 98; Resp 16; Temp 98.1; Pulse Ox 98% on R/A; Weight 50.35 kg; Height iw 5 ft. (152.40 cm); Pain 10/10; 10:45 BP 182 / 72; Pulse 76; Resp 16; Pulse Ox 96% on R/A; hb 12:01 BP 162 / 79; Pulse 88; Resp 17; Pulse Ox 99% on R/A; tw2 09:37 Body Mass Index 21.68 (50.35 kg, 152.40 cm) iw [place] Coma Score: 09:37 Eye Response: spontaneous(4). Verbal Response: oriented(5). Motor Response: obeys iw commands(6). Total: 15. Trauma Score (Adult): 09:37 Eye Response: spontaneous(1); Verbal Response: oriented(1); Motor Response: obeys iw commands(2); Systolic BP: > 89 mm Hg(4); Respiratory Rate: 10 to 29 per min(4); Castillo Score: 15; Trauma Score: 12 ED Course: 09:29 Patient arrived in ED. as 09:35 Triage completed. iw 09:38 Patient maintains SpO2 saturation greater than 95% on room air. iw 09:40 Chandra Lopez MD is Attending Physician. kei 09:41 Esthela Preciado RN is Primary Nurse. tw2 09:42 Arm band placed on. tw2 09:43 Bed in low position. Call light in reach. quality assurance monitor final on. Pulse ox on. NIBP on. tw2 Warm blanket given. 10:09 CT completed. Patient tolerated procedure well. Patient moved to CT via wheelchair. sj Patient moved back from CT. 10:14 CT Traumagram (Head C Spine CAP wo con) In Process Unspecified. EDMS 10:41 Inserted saline lock: 20 gauge in right forearm, using aseptic technique. Blood ms collected. 12:01 No provider procedures requiring assistance completed. IV discontinued, intact, tw2 bleeding controlled, No redness/swelling at site. Pressure dressing applied. Administered Medications: 10:50 Drug: NS 0.9% 500 ml Route: IV; Rate: bolus; Site: right antecubital; hb 12:03 Follow up: Response: No adverse reaction; IV Status: Completed infusion; IV Intake: tw2 500ml 11:56 Not Given (Duplicate Order; discharged ordered.): NS 0.9% 1000 ml IV at 125 ml/hr tw2 continuous Intake: 12:03 IV: 500ml; Total: 500ml. tw2 Outcome: 11:46 Discharge ordered by . kei 12:01 Discharged to home via wheelchair, with significant other. tw2 12:01 Condition: stable 12:01 Discharge instructions given to patient, significant other, Instructed on discharge instructions, follow up and referral plans. no drinking with medication, no driving heavy equipment, medication usage, incentive spirometer use Demonstrated understanding of instructions, follow-up care, medications, Prescriptions given X 1. 12:02 Patient left the ED. tw2 Addendum: 07/09/2018 07:48 Addendum: Culture Results: Positive urine culture. No further action required. Other: i w culture report reviewed by Dr. Lopez, pt asymptomatic, no further orders, pt to follow up with PCP. Patient was not prescribed antibiotics at discharge. Report given to JO for further evaluation and then to knockout machine operator for follow up with patient. Signatures: Dispatcher [employer] EDMS Chandra Lopez MD MD cha Jones, Bindu Hirsch Irene, RN RN Princess Jacome ms, Heather, RN RN hb Wise, Tara, RN RN tw2 Corrections: (The following items were deleted from the chart) 07/06 09:36 09:33 Presenting complaint: Patient states: was knocked over by a big dog and fell to iw her bottom, also hit against a wall, now has pain to left side, left hip, and ribs, hit head on wall, denies LOC, not on blood thinners, ambulatory iw
[2018-07-06 13:28] VITALS: TEMP 98.1
[2018-07-06 13:31] VITALS: BP 162/79; O2SAT 99
[2018-07-06 13:52] LABS: Urine Blood TRACE (NEG); Urine Glucose NEGATIVE (NEG); Urine Protein NEGATIVE (NEG); Urine Specific Gravity 1.015 (1.005-1.030)
== END 2018-07-06 12:02 | disposition home or self-care (01) ==
LOC: ER 09:27
DX: S20.229A Contusion of unspecified back wall of thorax, initial encounter (principal); W19.XXXA Unspecified fall, initial encounter; Y93.9 Activity, unspecified; Y92.9 Unspecified place or not applicable; Z88.2 Allergy status to sulfonamides; I10 Essential (primary) hypertension; E11.9 Type 2 diabetes mellitus without complications; E03.9 Hypothyroidism, unspecified; E78.5 Hyperlipidemia, unspecified
CPT/HCPCS: 36415; 70450; 71250; 72125; 80048; 80076; 81003; 83690; 85025; 86850; 86900; 86901; 87077; 87086; 87088; 87186; 96360; 99285

== ENCOUNTER 2019-11-23 11:33 | Emergency (ER) | payer OTHER ==
--- OUTSIDE RECORDS SUMMARY | 2019-11-23 11:36 | XMS REPORT | Continuity of Care Document ---
:1940 Author Organization [facility] t Address [address] [place] [address] Care Team Providers Name Role Phone Yessica SHERMAN Primary Care Physician Trever Robles MD Attending Clinician Payers Payer Name Policy Type Policy Number Effective Date Expiration Date S meagan [id number] xxxxxxxxxxx 1995 [place] sdkalvamy13/ 00:00:00 [employer] 04/1994-Prese ntMilitary Problems This patient has no known problems. Allergies, Adverse Reactions, Alerts This patient has no known allergies or adverse reactions. Social History Social Habit Start Date Stop Date Quantity Comments Source Sex Assigned At Shira stodavon Meeks Medications This patient has no known medications. Procedures Procedure Date / Time Performed Performing Clinician [facility] e MRI THORACIC SPINE WO 2019-10-21 17:28:59 Arian Robles on [employer] CONTRAST XR LUMBAR SPINE 2 OR 3 2019-10-21 16:41:52 Arian Robles VW MRI LUMBAR SPINE WO 2019-10-15 10:48:58 Arian Robles [employer] CONTRAST XR LUMBAR SPINE AP 2019-10-15 09:38:32 Arian Robles LATERAL FLEXION AND EXTENSION Plan of Care Planned Activity Planned Date Details Comments Source Future Scheduled 2019-11-16 INFLUENZA VACCINE Kayli mays [employer] Test 00:00:00 [code = INFLUENZA VACCINE] Future Scheduled 2004 65+ PNEUMOCOCCAL Epifanio [employer] Test 00:00:00 VACCINE (1 of 2 - PCV13) [code = 65+ PNEUMOCOCCAL VACCINE (1 of 2 - PCV13)] Future Scheduled 1989 SHINGLES VACCINES (#1) H ester [employer] Test 00:00:00 [code = SHINGLES VACCINES (#1)] Encounters Start End Encounter Admission Attending Care Care Encounter Source Date/Time Date/Time Type Type Clinicians Facility Department ID 2019-10-21 2019-10-21 Outpatient [facility] [id number] [place] 00:00:00 00:00:[address] 2019-10-21 2019-10-21 Outpatient [facility] [id number] [place] 00:00:00 00:00:[address] 2019-10-15 2019-10-15 Outpatient [facility] [id number] [place] 00:00:00 00:00:[address] 2019-10-15 2019-10-15 Outpatient [facility] [id number] [place] 00:00:00 00:00:[address] Results Test Description Test Time Test Comments Results Result [facility] e Comments MRI Thoracic [facility] [place] Spine Wo [address] Contrast 17:47:07 10/21/2019 5:50 PM CDTEXAMINATION: MRI THORACIC SPINE WO CONTRASTCLINICAL HISTORY: M54.14 Radiculopathy thoracic region, M54.6 Pain in thoracic spine, THORACIC RADICULOPATHY & PAINCOMPARISON: None.TECHNIQUE:Multip lanar MRI imaging without IV Gadolinium was performed.IMPRESSION: Acute severe compression fracture of T9 vertebral body with more than 50% central height loss and minimal retropulsion with no canal compromise. The fracture appears to be amenable for image guided cement augmentation if clinically warranted.Chronic severe compression deformity with vertebra plana involving T7 and T12 vertebral body. There is ankylosis and fusion between the T12 compression fracture and T11 vertebral body. There is no interval change.Diffuse demineralization of the bone compatible with osteopenia/osteoporos is.There is no significant thoracic canal stenosis or foraminal compromise. The thoracic spinal cord demonstrates normal contour and signal with no focal lesion.[facility]-[id number] XR [facility] Sp[facility] Vw [address] 16:44:01 10/21/2019 4:47 PM CDTEXAMINATION: XR LUMBAR SPINE 2 OR 3 VWCLINICAL HISTORY: M54.14 Radiculopathy thoracic region, M54.6 Pain in thoracic spine, THORACIC RADICULOPATHY & PAINCOMPARISON: October 15, 2019IMPRESSION: There is no change in the alignment or in the grade 3 focal compression fracture deformity of T12.There is stable scoliosis to the right centered at L1-2.There is stable diffuse demineralization. [facility]-[id number] MRI Lumbar Spine 2019-09-18 Hm Jean-Paul Hester on Wo Contrast 0 Radiology Results Method ist 10:57:04 - 10/15/2019 11:00 AM CDTEXAMINATION: MRI LUMBAR SPINE WO CONTRASTCLINICAL HISTORY: M54.5 Low back pain, LOW BACK PAINCOMPARISON: MRI lumbar spine 02/01/2017TECHNIQUE: Multiplanar multisequence nonenhanced MRI examination was performed of the Lumbar spine.FINDINGS:The last fully formed disc is designated as L5-S1.Stable severe compression fracture of the T12 vertebrae with associated kyphotic deformity with Magana angle measuring 50 degrees from the superior endplate of T11 to the inferior endplate of L1. Stable retropulsion of the superior endplate resulting in mild to moderate spinal canal narrowing. Ankylosis of the anterior aspect of the T12 vertebrae with T11.Mild exaggeration of the normal lumbar lordosis. Conus medullaris terminates at L1-L2. No suspicious osseous lesion or bone marrow edema.L1-L2: No significant posterior disc disease or spinal canal stenosis. Patent bilateral neural foramina.L2-L3: No significant posterior disc disease or spinal canal stenosis. Patent bilateral neural foramina.L3-L4: No significant posterior disc disease or spinal canal stenosis. Patent bilateral neural foramina.L4-L5: Trace retrolisthesis. No significant posterior disc disease or spinal canal stenosis. Patent bilateral neural foramina.L5-S1: No significant posterior disc disease or spinal canal stenosis. Patent bilateral neural foramina. Trace grade 1 anterolisthesis measuring 2 mm and question of chronic L5 pars defects.No significant posterior disc disease, spinal canal or neural foraminal stenosis at other visualized levels.IMPRESSION: Stable exam compared with 02/01/2017.[id number] XR Lumbar Spine 2019-09-18 Hm Kayli Hester n Ap Lateral [address] Flexion And 10:11:21 Incoming - 10/15/2019 Extension 10:14 AM CDTStudy:XR LUMBAR SPINE AP LATERAL FLEXION AND EXTENSIONHistory:M54. 5 Low back pain, LOW BACK PAINCOMPARISON:MRI lumbar spine February 01, 2017IMPRESSION:4 views of the lumbar spine to include flexion and extension.Mineralizat ion is diffusely decreased. There is a right convex scoliosis at the lumbar junction. There is some exaggeration of the lumbar lordosis similar to the prior exam with stable chronic compression deformity of the T12 vertebral body. The lumbar vertebral body heights are within normal limits. No subluxations or induced listhesis are seen. Mild disc space loss present at L1-2. Remaining disc spaces are within normal limits. There is atherosclerosis of the abdominal aorta. Overlying soft tissues otherwise unremarkable.[facility]-[id number]
--- OUTSIDE RECORDS SUMMARY | 2019-11-23 11:36 | XMS REPORT | Clinical Summary ---
:1940 Author Organization [facility] Address [address] [place] [address] Care Team Providers Name Role Phone Brice Juan MD Primary Care Provider Allergies Not on File Medications Not on file Active Problems Not on file Encounters Date Type Specialty Care Team Description 10/21/2019 Hospital Encounter Radiology Travis, Ray Trever, Radi culopathy, thoracic region; Pain in thoraci c spine 10/21/2019 Hospital Encounter Radiology Travis, Ray Trever, Radi culopathy, thoracic region; MD Pain in thoraci c spine 10/21/2019 Travel 10/17/2019 Transcribe Orders Access Travis, Ray Trever, Radic ulopathy, thoracic region (Primary Dx); Pain in thoraci c spine 10/15/2019 Hospital Encounter Radiology Travis, Ray Trever, Low back pain 10/15/2019 Hospital Encounter Radiology Travis, Ray Trever, Low back pain MD 10/15/2019 Travel 10/10/2019 Travel 10/10/2019 Transcribe Orders Access Travis, Ray Trever, Low b ack pain (Primary Dx) MD after 11/22/2018 Social History Tobacco Use Types Packs/Day Years [...] VACCINE (1 of 2 - PCV13) 2004 INFLUENZA VACCINE 11/16/2019 Procedures Procedure Name Priority Date/Time Associated Diagnosis Comme nts MRI THORACIC SPINE STAT 10/21/2019 5:28 PM Radiculopathy, Results for this WO CONTRAST CDT thoracic region procedure are in Pain in thoracic the results spine section. XR LUMBAR SPINE 2 STAT 10/21/2019 4:41 PM Radiculopathy, R esults for this OR 3 VW CDT thoracic region procedure are in Pain in thoracic the results spine section. MRI LUMBAR SPINE WO Routine 10/15/2019 10:48 AM Low back pain Results for this CONTRAST CDT procedure are i n the results section. XR LUMBAR SPINE AP Routine 10/15/2019 9:38 AM Low back pain R esults for this LATERAL FLEXION CDT procedure a re in AND EXTENSION the results section. after 11/22/2018 Results MRI Thoracic Spine Wo Contrast (10/21/2019 5:28 PM CDT) Specimen Narrative Performed At EXAMINATION: MRI THORACIC SPINE WO CON TRAST [facility] CLINICAL HISTORY: M54.14 Radiculopathy thoracic re gion, M54.6 Pain in thoracic spine, THORACIC RADICULOPATH Y & PAIN COMPARISON: None. TECHNIQUE: Multiplanar MRI imaging without IV Alexander olinium was performed. IMPRESSION: Acute severe compression fracture of T9 vertebral body with more than 50% central height loss and minimal retropulsion with no canal compromise. The fracture appears to be amenable for im age guided cement augmentation if clinically warranted. Chronic severe compression deformity with vertebra tracy na involving T7 and T12 vertebral body. There is ankylosis and fusion between the T12 compression fracture and T11 vertebral body. There is no interval change. Diffuse demineralization of the bone compatible with osteopenia/osteoporosis. There is no significant thoracic canal stenosis or for aminal compromise. The thoracic spinal cord demonstrates normal contour a nd signal with no focal lesion. [facility]-[id number] Procedure Note Hm Interface, Radiology Results Incoming - 10/21/2019 5:50 PM CDT EXAMINATION: MRI THORACIC SPINE WO CONTRAST CLINICAL HISTORY: M54.14 Radiculopathy thoracic region, M54.6 Pain in thoracic spine, THORACIC RADICULOPATHY & PAIN COMPARISON: None. TECHNIQUE: Multiplanar MRI imaging without IV Gado linium was performed. IMPRESSION: Acute severe compression fracture of T9 vertebral body with more than 50% central height loss and minimal retropulsion with no canal compromise. The fracture appears to be amenable for image guided cement augmentation if clinically warranted. Chronic severe compression deformity wit h vertebra plana involving T7 and T12 vertebral body. There is ankylosis and fusion between the T12 compression fracture and T11 vertebral body. There is no interval change. Diffuse demineralization of the bone com patible with osteopenia/osteoporosis. There is no significant thoracic canal s tenosis or foraminal compromise. The thoracic spinal cord demonstrates normal contour and signal with no focal lesion. [facility]-[id number] Performing Organization Address [facility] Phone Number [facility] [address] [place] [address] XR Lumbar Spine 2 Or 3 Vw (10/21/2019 4:41 PM CDT) Specimen Narrative Performed At EXAMINATION: XR LUMBAR SPINE 2 OR 3 VW [facility] CLINICAL HISTORY: M54.14 Radiculopathy thoracic re gion, M54.6 Pain in thoracic spine, THORACIC RADICULOPATH Y & PAIN COMPARISON: October 15, 2019 IMPRESSION: There is no change in the alignment or in the grade 3 focal compression fracture deformity of T12. There is stable scoliosis to the right c entered at L1-2. There is stable diffuse demineralization . [facility]-[id number] Procedure Note Hm Interface, Radiology Results Incoming - 10/21/2019 4:47 PM CDT EXAMINATION: XR LUMBAR SPINE 2 OR 3 VW CLINICAL HISTORY: M54.14 Radiculopathy thoracic region, M54.6 Pain in thoracic spine, THORACIC RADICULOPATHY & PAIN COMPARISON: October 15, 2019 IMPRESSION: There is no change in the alignment or i n the grade 3 focal compression fracture deformity of T12. There is stable scoliosis to the right c entered at L1-2. There is stable diffuse demineralization . [facility]-[id number] Performing Organization Address [facility] Phone Number [facility] [address] [place] [address] MRI Lumbar Spine Wo Contrast (10/15/2019 10:48 AM CDT) Specimen Narrative Performed At EXAMINATION: MRI LUMBAR SPINE WO CONTRAS T [facility] CLINICAL HISTORY: M54.5 Low back pain, L OW BACK PAIN COMPARISON: MRI lumbar spine 7 TECHNIQUE: Multiplanar multisequence nonenhanced MRI e xamination was performed of the Lumbar spine. FINDINGS: The last fully formed disc is designated as L5-S1. Stable severe compression fracture of the T12 vertebra e with associated kyphotic deformity with Magana angle measuring 50 degree s from the superior endplate of T11 to the inferior endplate of L 1. Stable retropulsion of the superior endplate re sulting in mild to moderate spinal canal narrowing. Ankylosis of the anterior aspect of the T12 vertebrae with T11. Mild exaggeration of the normal lumbar lordosis. Conus medullaris terminates at L1-L2. No suspicious osseo us lesion or bone marrow edema. L1-L2: No significant posterior disc disease or spinal canal stenosis. Patent bilateral neural foramina. L2-L3: No significant posterior disc disease or spinal canal stenosis. Patent bilateral neural foramina. L3-L4: No significant posterior disc disease or spinal canal stenosis. Patent bilateral neural foramina. L4-L5: Trace retrolisthesis. No significant posterior disc disease or spinal canal stenosis. Patent bilatera l neural foramina. L5-S1: No significant posterior disc disease or spinal canal stenosis. Patent bilateral neural foramina. Trace grade 1 ante rolisthesis measuring 2 mm and question of chronic L 5 pars defects. No significant posterior disc disease, spinal canal or neural foraminal stenosis at other visualized levels. IMPRESSION: Stable exam compared with 02/01/2017. [id number] Procedure Note Hm Interface, Radiology Results Incoming - 10/15/2019 11:00 AM CDT EXAMINATION: MRI LUMBAR SPINE WO CONTRAST CLINICAL HISTORY: M54.5 Low back pain, L OW BACK PAIN COMPARISON: MRI lumbar spine 02/01/2017 TECHNIQUE: Multiplanar multisequence non enhanced MRI examination was performed of the Lumbar spine. FINDINGS: The last fully formed disc is designated as L5-S1. Stable severe compression fracture of th e T12 vertebrae with associated kyphotic deformity with Magana angle measuring 50 degrees from the superior endplate of T11 to the inferior endplate of L1. Stable retropulsion of the superior endplate resulting in mild to moderate spinal canal narrowing. Ankylosis of the anterior aspect of the T12 vertebrae with T11. Mild exaggeration of the normal lumbar l ordosis. Conus medullaris terminates at L1-L2. No suspicious osseous lesion or bone marrow edema. L1-L2: No significant posterior disc dis ease or spinal canal stenosis. Patent bilateral neural foramina. L2-L3: No significant posterior disc dis ease or spinal canal stenosis. Patent bilateral neural foramina. L3-L4: No significant posterior disc dis ease or spinal canal stenosis. Patent bilateral neural foramina. L4-L5: Trace retrolisthesis. No signific ant posterior disc disease or spinal canal stenosis. Patent bilateral neural foramina. L5-S1: No significant posterior disc dis ease or spinal canal stenosis. Patent bilateral neural foramina. Trace grade 1 anterolisthesis measuring 2 mm and question of chronic L5 pars defects. No significant posterior disc disease, s alden canal or neural foraminal stenosis at other visualized levels. IMPRESSION: Stable exam compared with 02/01/2017. [id number] Performing Organization Address City/State/Zipcode Phone Number [facility] [address] [place] [address] XR Lumbar Spine Ap Lateral Flexion And Extension (10/15/2019 9:38 AM CDT) Specimen Narrative Performed At Study:XR LUMBAR SPINE AP LATERAL FLEXI ON AND EXTENSION [facility] History:M54.5 Low back pain, LOW BACK PA IN COMPARISON:MRI lumbar spine February 01, 2017 IMPRESSION: 4 views of the lumbar spine to include f lexion and extension. Mineralization is diffusely decreased. There is a righ t convex scoliosis at the lumbar junction. There is some exaggeration of the lumbar lordosis similar to the prior exam with stable chronic compression deformity of the T12 vertebral body. The lumbar vertebral body heights are within normal limits. No tyson bluxations or induced listhesis are seen. Mild disc space loss prese nt at L1-2. Remaining disc spaces are within normal limits. There is atherosclerosis of the abdominal aorta. Overlying soft t issues otherwise unremarkable. [facility]-[id number] Procedure Note Interface, Radiology Results Incoming - 10/15/2019 10:14 AM CDT Study:XR LUMBAR SPINE AP LATERAL FLEXION AND EXTENSION History:M54.5 Low back pain, LOW BACK PA IN COMPARISON:MRI lumbar spine February 01, 2017 IMPRESSION: 4 views of the lumbar spine to include f lexion and extension. Mineralization is diffusely decreased. T here is a right convex scoliosis at the [...] atherosclerosis of the abdominal aorta. Overlying soft t issues otherwise unremarkable. [id number] Performing Organization Address City/State/Zipcode Phone Number [facility] [address] [facility] 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
[2019-11-23 12:25] LABS: Absolute Lymphocytes (CBC) 1.6 K/uL (0.7-4.9); Basophils % 0.4 % (0-1.3); Hematocrit 41.1 % (36.0-45.0); MPV 6.8 fL (7.6-11.3); RBC Red Blood Cell Count 4.45 M/uL (3.86-4.86)
[2019-11-23 12:40] LABS: Potassium 4.1 mmol/L (3.5-5.1)
--- NOTE | 2019-11-23 12:45 | RAD REPORT ---
EXAM DESCRIPTION: RAD - Chest Single View - 11/23/2019 12:30 pm CLINICAL HISTORY: fall, head/chest/abd/flank pain;Blunt chest trauma COMPARISON: CT trauma study June 2018 portable chest February 2017 TECHNIQUE: AP portable chest image was obtained 11/23/2019 12:30 pm . FINDINGS: Patient has a known large hiatal hernia filling a significant portion of the midline lower chest. Baseline interstitial fibrotic changes noted as well. Severity of interstitial disease could mask early edema or infiltrate. Overall left base opacification is not clearly different from the com parison imaging. Heart size is prominent but stable. Vasculature within normal limits. No pneumothorax identified. No large pleural effusions seen. No acute aortic finding. Aortic calcifications are seen. Bones are osteopenic. Patient has evidence for old rib deformity on the left also seen on the [address] No clearly displaced left-side rib fractures seen. Angulation deformities of the posterior right seventh eighth ribs are noted. These are not clearly seen on comparison imaging. Nondisplaced f ractures are possible. Correlation is needed with any posterolateral mid chest rib pain. IMPRESSION: Possible nondisplaced fractures of the right seventh and eighth ribs. Correlation is nee ded with any posterolateral right mid chest pain symptoms. Portable exam limitations in osteopenia could obscure additional fractures. No pneumothorax. Patient has significant baseline interstitial fibrotic lung disease.
--- NOTE | 2019-11-23 13:32 | RAD REPORT ---
EXAM DESCRIPTION: CT - Head C Spine Cap W Con - 11/23/2019 1:09 pm CLINICAL HISTORY: PAIN COMPARISON: Head C Spine Cap Wo Con dated 07/06/2018 TECHNIQUE: Axial [address] head images were obtained. Axial [address] cervical spine images were obtaine d with sagittal and coronal reconstruction images reviewed. During dynamic enhancement of 100mL non-i onic contrast, axial 5 mm images of the chest, abdomen and pelvis were obtained. Biphasic technique p erformed of the abdomen and pelvis. All CT scans are performed using dose optimization technique as appropriate and may include automated exposure control or mA/KV adjustment according to patient size. FINDINGS: No intracranial hemorrhage, mass or edema. No midline shift or abnormal fluid collection. Patient has prominent atrophy and chronic ischemic change. Ventricles are in proportion to the volume loss. Arterial and physiologic calcifications are present. Mastoid air cells are clear. Air-fluid le patsy in the left maxillary sinus is present. No additional findings that would indicate acute sinus wa ll fracture. Patient has a small left frontal scalp hematoma with underlying frontal bone intact. Asy mmetry is created by significant head tilt within the scanner. CT cervical spine imaging shows normal height. Cervical lordosis is accentuated due to thoracic findi ngs. Normal alignment of the vertebrae. Minimal disc space narrowing at C5-6 with posterior endplate spurring. No significant degree of foraminal encroachment. Facet degenerative changes are present. No paraspinal mass or hematoma seen. Central canal detail is inherently limited. Concerns for traumatic disc herniation or traumatic cord injury can be further addressed with MR imaging. CT chest shows no pneumothorax, pulmonary contusion or pleural fluid collection. No mediastinal hemat lui and the aorta and pulmonary arteries are unremarkable. No chest will mass or abnormal axillary fi nding. Posterior left eleventh rib fracture is present very minimally displaced. No other acute fract ure confirmed. There are old fracture deformity seen on the left. Patient has scarring and atelectasi s in the left base. Right atrium and ventricle are enlarged slightly. No pericardial effusion. Patie nt has a large hiatal hernia with approximately 50% of the stomach in the chest. Herniated portion co ntains fluid. There is fluid within a dilated esophagus. Patient may have presbyesophagus with reflux . Esophageal wall thickening or mass not identified. CT abdomen and pelvis show no injury to solid abdominal viscera. Gallbladder and biliary tree are unr emarkable. No bowel injury or significant finding. No free air, free fluid or abnormal stranding. No urinary bladder abnormality. Degenerative and osteopenic changes are present throughout the skeleton. 80% compression fracture def ormities of T7 and T12 are stable from June 2018. There is a delete select 70% compression fracture of the T9 body new from June 2018. An acute fracture related this event cannot be excluded though fi ndings gently favor chronicity. The posterior wall protrudes into the central canal causing mild cent ral spinal stenosis. No pathologic component suspected. Kyphosis is accentuated. No significant vascular finding. IMPRESSION: Prominent atrophy and chronic ischemic change with no hemorrhage or acute intracranial f inding. The left maxillary sinus air-fluid level is believed to be sinus disease. No additional findi ngs to indicate sinus wall fracture. Cervical spine degenerative change present as detailed. No acute findings seen. Posterior left eleventh rib fracture near the vertebral column. This is minimally displaced. No pneum othorax, pleural fluid collection or pulmonary contusion. No traumatic injuries in the abdomen and pelvis. Patient has a large hiatal hernia with 50% of the st omach intrathoracic. There is fluid within the dilated esophagus without mass identifiable. This is s uspected to be presbyesophagus with reflux. Approximately 70% T9 compression fracture new from June 2018. This is probably remote from the preci pitating event; however, fracture related to the current fall is not excluded.
--- NOTE | 2019-11-23 13:47 | ER ---
Nurse's Notes [facility] Name: Haydee De Jesus Age: 79 yrs Sex: Female : 1940 Arrival Date: 11/23/2019 Time: 11:36 Bed 5 Private MD: Diagnosis: Fracture of one rib, left side Presentation: 11/22 11:41 Chief complaint: Patient states: "I fell on , I was leaning over the toilet and aa5 hit my head on the wall". Bruising noted to left side of forehead, denies LOC. Reports left lower rib cage pain, pt states 'I vomited last night after I took a pill", abd tender to LUQ. 11:41 Coronavirus screen: Client denies travel out of the [place] in the last 14 days. At this aa5 time, the client does not indicate any symptoms associated with coronavirus-19. Ebola Screen: Patient negative for fever greater than or equal to 101.5 degrees Fahrenheit, and additional compatible Ebola Virus Disease symptoms. Initial Sepsis Screen: Does the patient meet any 2 criteria? No. Patient's initial sepsis screen is negative. Does the patient have a suspected source of infection? No. Patient's initial sepsis screen is negative. Risk Assessment: Do you want to hurt yourself or someone else? Patient reports no desire to harm self or others. Onset of symptoms was November 2019. 11:41 Acuity: JOYCELYN 3 aa5 11:41 Method Of Arrival: Wheelchair aa5 Triage Assessment: 11:45 General: Appears in no apparent distress. comfortable, Behavior is cooperative, bp appropriate for age, anxious. Pain: Complains of pain in forehead and abdomen. EENT: No deficits noted. Neuro: Level of Consciousness is awake, alert, obeys commands, Oriented to person, place, time, situation. Cardiovascular: No deficits noted. Respiratory: No deficits noted. GI: Reports upper abdominal pain. : No signs and/or symptoms were reported regarding the genitourinary system. Derm: No deficits noted. Musculoskeletal: No deficits noted. Historical: - Allergies: 11:48 Sulfa (Sulfonamide Antibiotics); aa5 - PMHx: 11:48 Diabetes - NIDDM; Hyperlipidemia; Hypertension; Hypothyroidism; Osteoporosis; T8, T9 aa5 vertebrae fx.; - PSHx: 11:48 left arm; Appendectomy; bladder surgery; aa5 - Immunization history:: Adult Immunizations up to date. - Family history:: not pertinent. - Social history:: Smoking status: Patient denies any tobacco usage or history of. - Hospitalizations: : No recent hospitalization is reported. Screenin:45 Abuse screen: Denies threats or abuse. Denies injuries from another. Nutritional bp screening: No deficits noted. Tuberculosis screening: No symptoms or risk factors identified. Fall Risk None identified. Assessment: 11:45 General: SEE TRIAGE NOTE. bp 12:14 Reassessment: PT REMAINS NEURO INTACT. CT PENDING. bp 13:29 Reassessment: ALL CURRENT ORDERS COMPLETED, RESULTS PENDING FOR DISPO. NO CHANGE IN PT bp NEURO STATUS. 14:10 Reassessment: PT D/C HOME VIA W/C WITH FAMILY, DX WITH RIB FX. bp Vital Signs: 11:41 BP 150 / 89; Pulse 107; Resp 16 S; Temp 98.4(O); Pulse Ox 95% on R/A; aa5 12:15 BP 138 / 93; Pulse 105; Resp 17; Pulse Ox 96% ; bp 13:29 BP 124 / 78; Pulse 102; Resp 18; Pulse Ox 93% ; bp ED Course: 11:36 Patient arrived in ED. as 11:41 Arm band placed on Patient placed in an exam room, on a stretcher. aa5 11:42 Anam Schaefer MD is Attending Physician. rn 11:45 Patient has correct armband on for positive identification. Bed in low position. Call bp light in reach. Side rails up X2. 11:56 Triage completed. aa5 12:00 Irvin Carmona, NIHARIKA is Primary Nurse. bp 12:14 Inserted saline lock: 22 gauge in right antecubital area, using aseptic technique. bp Blood collected. 13:11 CT completed. Patient moved back from CT. bq 14:10 No provider procedures requiring assistance completed. IV discontinued, intact, bp bleeding controlled, No redness/swelling at site. Pressure dressing applied. Administered Medications: No medications were administered Outcome: 13:47 Discharge ordered by . rn 14:10 Discharged to home via wheelchair, with family. bp 14:10 Condition: stable 14:10 Discharge instructions given to patient, family, Instructed on discharge instructions, follow up and referral plans. Demonstrated understanding of instructions, follow-up care. 14:11 Patient left the ED. bp Signatures: Mariza Gallardo Amelia as Nieto, Roman, MD MD rn Soraida Shook RN RN aa5 Irvin Carmona RN RN bp
--- NOTE | 2019-11-23 13:47 | EDPHYS ---
Physician Documentation [facility] Name: Haydee De Jesus Age: 79 yrs Sex: Female : 1940 Arrival Date: 11/23/2019 Time: 11:36 Bed 5 Private MD: ED Physician Anam Schaefer HPI: 11/22 11:52 This 79 yrs old Female presents to ER via Unassigned with complaints of Fall rn Injury - l sided pain. 11:52 Details of fall: The patient fell from seated position, toilet. Onset: The rn symptoms/episode began/occurred 2 day(s) ago. Associated injuries: The patient sustained injury to the head, injury to the chest, injury to the abdomen. Severity of symptoms: At their worst the symptoms were mild, in the emergency department the symptoms are unchanged. The patient has experienced similar episodes in the past. Reports multiple falls in past, + most recent with spinal fractures, here today 2 days after fall, seated, fell while trying to get onto toilet, reports bruised on left side, vomited once last night, no LOC, no blood thinner. Reports most of pain is left ribs and upper abdomen. . Historical: - Allergies: 11:48 Sulfa (Sulfonamide Antibiotics); aa5 - PMHx: 11:48 Diabetes - NIDDM; Hyperlipidemia; Hypertension; Hypothyroidism; Osteoporosis; T8, T9 aa5 vertebrae fx.; - PSHx: 11:48 left arm; Appendectomy; bladder surgery; aa5 - Immunization history:: Adult Immunizations up to date. - Family history:: not pertinent. - Social history:: Smoking status: Patient denies any tobacco usage or history of. - Hospitalizations: : No recent hospitalization is reported. ROS: 11:52 Constitutional: Negative for fever, chills, and weight loss, Eyes: Negative for injury, rn pain, redness, and discharge, Neck: Negative for injury, pain, and swelling, Cardiovascular: + chest pain Respiratory: Negative for shortness of breath, cough, wheezing, and pleuritic chest pain, Abdomen/GI: + left sided abd pain, + vomited once Back: Negative for injury and pain, MS/Extremity: Negative for injury and deformity, Skin: + bruising Neuro: Negative for headache, weakness, numbness, tingling, and seizure. Exam: 11:52 Constitutional: This is a well developed, well nourished patient who is awake, alert, rn and in no acute distress. Head/Face: + healing bruise to left frontal bone, no laceration ENT: NO oral trauma Neck: No spinal tenderness Chest/axilla: + mild tenderness left lateral chest wall with ecchymosis, no crepitus Cardiovascular: Regular rate and rhythm. No pulse deficits. Respiratory: No increased work of breathing, no retractions or nasal flaring. Abdomen/GI: soft, + left upper abd tenderness, no masses MS/ Extremity: Pulses equal, no cyanosis. Neurovascular intact. Full, normal range of motion. Equal circumference. Neuro: Awake and alert, GCS 15 Vital Signs: 11:41 BP 150 / 89; Pulse 107; Resp 16 S; Temp 98.4(O); Pulse Ox 95% on R/A; aa5 12:15 BP 138 / 93; Pulse 105; Resp 17; Pulse Ox 96% ; bp 13:29 BP 124 / 78; Pulse 102; Resp 18; Pulse Ox 93% ; bp MDM: 11:42 Patient medically screened. rn 13:45 Differential diagnosis: closed head injury, contusion, fracture, sprain. Data reviewed: rn vital signs, nurses notes, lab test result(s), radiologic studies, CT scan, plain films, and as a result, I will discharge patient. Counseling: I had a detailed discussion with the patient and/or guardian regarding: the historical points, exam findings, and any diagnostic results supporting the discharge/admit diagnosis, lab results, radiology results, the need for outpatient follow up, to return to the emergency department if symptoms worsen or persist or if there are any questions or concerns that arise at home. Special discussion: I discussed with the patient/guardian in detail that at this point there is no indication for admission to the hospital. It is understood, however, that if the symptoms persist or worsen the patient needs to return immediately for re-evaluation. Based on the history and exam findings, there is no indication for further emergent testing or inpatient evaluation. I discussed with the patient/guardian the need to see the primary care provider for further evaluation of the symptoms. ED course: Possibly 1 new posterior left 11th rib fx, + old spinal fractures, no lung contusion or PTX, will dc home with pcp f/u, has tylenol#3 and hydrocodone at home.. 11/22 11:48 Order name: Basic Metabolic Panel rn 11/22 11:48 Order name: CBC with Diff rn 11/22 11:48 Order name: XRAY Chest (1 view) rn 11/22 12:31 Order name: CBC with Automated Diff EDMS 11/22 12:40 Order name: Basic Metabolic Panel EDMS 11/22 12:45 Order name: CREATININE WHOLE BLOOD EDMS 11/22 11:48 Order name: CT Traumagram (Head C Spine CAP W Con) rn 11/22 11:48 Order name: Labs collected and sent; Complete Time: 12:13 rn 11/22 12:45 Order name: RAD EDMS 11/22 13:33 Order name: CT EDMS Administered Medications: No medications were administered Disposition: 11/23/19 13:47 Discharged to Home. Impression: Fracture of one rib, left side. - Condition is Stable. - Discharge Instructions: Head Injury, Adult, Rib Fracture. - Medication Reconciliation Form, Thank You Letter, Antibiotic Education, Prescription Opioid Use form. - Follow up: Private Physician; When: As needed; Reason: Recheck today's complaints, Re-evaluation by your physician. - Problem is new. - Symptoms have improved. Signatures: Dispatcher [employer] EDMS Anam Schaefer MD MD rn Calderon, Audri RN RN aa5 Irvin Carmona RN RN bp Corrections: (The following items were deleted from the chart) 14:11 13:47 11/23/2019 13:47 Discharged to Home. Impression: Fracture of one rib, left side. bp Condition is Stable. Forms are Medication Reconciliation Form, Thank You Letter, Antibiotic Education, Prescription Opioid Use. Follow up: Private Physician; When: As needed; Reason: Recheck today's complaints, Re-evaluation by your physician. Problem is new. Symptoms have improved. rn
[2019-11-23 14:18] VITALS: TEMP 98.4
[2019-11-23 14:20] VITALS: BP 124/78; O2SAT 93
== END 2019-11-23 14:11 | disposition home or self-care (01) ==
LOC: ER 11:33
DX: S22.32XA Fracture of one rib, left side, initial encounter for closed fracture (principal); W18.11XA Fall from or off toilet without subsequent striking against object, initial encounter; Y93.89 Activity, other specified; Y92.9 Unspecified place or not applicable; I10 Essential (primary) hypertension; Z88.2 Allergy status to sulfonamides
CPT/HCPCS: 85025; 80048; 36415; 82565; 70450; 72125; 71260; 74177; 71045; 99284; Q9967

== ENCOUNTER 2019-12-26 08:07 | Inpatient (IN) | payer OTHER ==
--- OUTSIDE RECORDS SUMMARY | 2019-12-26 08:11 | XMS REPORT | Continuity of Care Document ---
:1940 Author Organization [facility] t Address [address] [place] [address] Care Team Providers Name Role Phone Yessica SHERMAN Primary Care Physician Trever Robles MD Attending Clinician Payers Payer Name Policy Type Policy Number Effective Date Expiration Date S meagan [id number] xxxxxxxxxxx 1995 [place] [id number] 00:00:00 [employer] 04/1994-Prese ntMilitary Problems This patient has no known problems. Allergies, Adverse Reactions, Alerts This patient has no known allergies or adverse reactions. Social History Social Habit Start Date Stop Date Quantity Comments Source Sex Assigned At Shira Meeks Exposure to SARS-CoV-2 Not sure Thony Meeks (event) Medications This patient has no known medications. Procedures Procedure Date / Time Performed Performing Clinician Sourc e XR THORACOLUMBAR SPINE 2 2019-11-26 10:50:00 Arian Robles VW MRI THORACIC SPINE WO 2019-10-21 17:28:59 Arian Roblesist CONTRAST XR LUMBAR SPINE 2 OR 3 VW 2019-10-21 16:41:52 Arian Robles MRI LUMBAR SPINE WO 2019-10-15 10:48:58 Arian Robles CONTRAST XR LUMBAR SPINE AP 2019-10-15 09:38:32 Arian Robles LATERAL FLEXION AND EXTENSION Plan of Care Planned Activity Planned Date Details Comments Source Future Scheduled 2020-01-16 INFLUENZA VACCINE [facility]li n [facility] Test 00:00:00 [code = INFLUENZA VACCINE] Future Scheduled 2004 65+ PNEUMOCOCCAL [place] [facility] Test 00:00:00 VACCINE (1 of 2 - PCV13) [code = 65+ PNEUMOCOCCAL VACCINE (1 of 2 - PCV13)] Future Scheduled 1989 SHINGLES VACCINES (#1) Benjamin norman [facility] Test 00:00:00 [code = SHINGLES VACCINES (#1)] Encounters Start End Encounter Admission Attending Care Care Encounter Source Date/Time Date/Time Type Type Clinicians Facility Department ID 2019-11-26 2019-11-26 Outpatient LEILA, RAY [facility] [id number] [place] 00:00:00 00:00:[address] 2019-10-21 2019-10-21 Outpatient LEILA, RAY [facility] [id number] [place] 00:00:00 00:00:[address] 2019-10-21 2019-10-21 Outpatient LEILA, RAY [facility] [id number] [place] 00:00:00 00:00:[address] 2019-10-15 2019-10-15 Outpatient LEILA, RAY [facility] [id number] [place] 00:00:00 00:00:[address] 2019-10-15 2019-10-15 Outpatient LEILA, RAY [facility] [id number] [place] 00:00:00 00:00:[address] Results Test Description Test Time Test Comments Results Result [facility] e Comments XR Thoracolumbar 2019-11-16 Hm Interface, [place] on Spine 2 Vw [address] 18:33:00 11/26/2019 6:36 PM CDTEXAMINATION: XR THORACOLUMBAR SPINE 2 VWCLINICAL HISTORY: M54.6 Pain in thoracic spine, M54.5 Low back pain, M54.6 M54.5IMPRESSION:2 views of the thoracic spine were obtained.There is severe exaggerated thoracic kyphosis. Compared to the prior MRI of the thoracic spine dated October 21, 2019, there has been no significant interval change in the severe compression fractures involving T12, T9 and T7 vertebral bodies. There is no definite evidence of new compression fracture.[id number] MRI Thoracic Spine Hm Interface, Shira mondragon Wo Contrast 6 Radiology Results Method ist 17:47:07 10/21/2019 5:50 PM CDTEXAMINATION: MRI THORACIC SPINE WO CONTRASTCLINICAL HISTORY: M54.14 Radiculopathy thoracic region, M54.6 Pain in thoracic spine, THORACIC RADICULOPATHY & PAINCOMPARISON: None.TECHNIQUE:Multi planar MRI imaging without IV Gadolinium was performed.IMPRESSION : Acute severe compression fracture of T9 vertebral [...] change.Diffuse demineralization of the bone compatible with osteopenia/osteoporo sis.There is no significant thoracic canal stenosis or foraminal compromise. The thoracic spinal cord demonstrates normal contour and signal with no focal lesion.[id number] XR Lumbar Spine 2 Hm Interface, [place] Or 3 Vw [address] 16:44:01 - 10/21/2019 4:47 PM CDTEXAMINATION: XR LUMBAR SPINE 2 OR 3 VWCLINICAL HISTORY: M54.14 Radiculopathy thoracic region, M54.6 Pain in thoracic spine, THORACIC RADICULOPATHY & PAINCOMPARISON: October 15, 2019IMPRESSION: There is no change in the alignment or in the grade 3 focal compression fracture deformity of T12.There is stable scoliosis to the right centered at L1-2.There is stable diffuse demineralization. [facility]-[id number] MRI Lumbar Spine 2019-09-18 Hm Interface, [place] on Wo Contrast 0 Radiology Results Method [...] other visualized levels.IMPRESSION: Stable exam compared with 02/01/2017.[id number] XR Lumbar Spine Ap 2019-09-18 Hm Shira Hester Lateral Flexion 0 Radiology Results M ethodist And Extension 10:11:21 Incoming - 10/15/2019 10:14 AM CDTStudy:XR LUMBAR SPINE AP LATERAL FLEXION AND EXTENSIONHistory:M54 .5 Low back pain, LOW BACK PAINCOMPARISON:MRI lumbar spine February 01, 2017IMPRESSION:4 views of the lumbar spine to include flexion and extension.Mineraliza tion is diffusely decreased. There is a right [...] the abdominal aorta. Overlying soft tissues otherwise unremarkable.[facility]-2U [id number]
--- OUTSIDE RECORDS SUMMARY | 2019-12-26 08:11 | XMS REPORT | Clinical Summary ---
:1940 Author Organization [facility] Address [address] [place] [address] Care Team Providers Name Role Phone Brice Juan MD Primary Care Provider Allergies Not on File Medications Not on file Active Problems Not on file Encounters Date Type Specialty Care Team Description 11/26/2019 Hospital Encounter Radiology Travis, Ray Trever, Pain in thoracic spine; Low back pain 11/26/2019 Travel 11/26/2019 Transcribe Orders Access Travis, Ray Trever, Pain in thoracic spine (Primary Dx); Low back pain 10/21/2019 Hospital Encounter Radiology Travis, Ray Trever, Radi culopathy, thoracic region; Pain in thoraci c spine 10/21/2019 Hospital Encounter Radiology Travis, Ray Trever, Radi culopathy, thoracic region; Pain in thoraci c spine 10/21/2019 Travel 10/17/2019 Transcribe Orders Access Travis, Ray Trever, Radic ulopathy, thoracic region (Primary Dx); Pain in thoraci c spine 10/15/2019 Hospital Encounter Radiology Travis, Ray Trever, Low back pain 10/15/2019 Hospital Encounter Radiology Travis, Ray Trever, Low back pain 10/15/2019 Travel 10/10/2019 Travel 10/10/2019 Transcribe Orders Access Travis, Ray Trever, Low b ack pain (Primary Dx) MD after 12/25/2018 Social History Tobacco Use Types Packs/Day Years Used Date Never Assessed Sex Assigned at Date Recorded Not on file Job Start Date Occupation Industry Not on file Not on file Not on file Travel History Travel Start Travel End No recent travel history available. COVID-19 Exposure Response Date Recorded In the last month, have you been in contact with No / Unsure 11/26/2019 10:21 AM CDT someone who was confirmed or suspected to have Coronavirus / COVID-19? Last Filed Vital Signs Not on file Plan of Treatment Health Maintenance Due Date Last Done Comments SHINGLES VACCINES (#1) 1989 65+ PNEUMOCOCCAL VACCINE (1 of 2 - PCV13) 2004 INFLUENZA VACCINE 01/16/2020 Procedures Procedure Name Priority Date/Time Associated Comments Diagnosis XR THORACOLUMBAR SPINE Routine 11/26/2019 10:50 Pain in thorac ic Results for this 2 VW AM CDT spine procedure are in Low back pain the results section. MRI THORACIC SPINE WO STAT 10/21/2019 5:28 Radiculopathy, Results for this CONTRAST PM CDT thoracic region procedure are in Pain in thoracic the results spine section. XR LUMBAR SPINE 2 OR 3 STAT 10/21/2019 4:41 Radiculopathy, Results for this VW PM CDT thoracic region procedure are in Pain in thoracic the results spine section. MRI LUMBAR SPINE WO Routine 10/15/2019 10:48 Low back pain Res ults for this CONTRAST AM CDT procedure are i n the results section. XR LUMBAR SPINE AP Routine 10/15/2019 9:38 Low back pain Resu lts for this LATERAL FLEXION AND AM CDT procedu re are in EXTENSION the results section. after 12/25/2018 Results XR Thoracolumbar Spine 2 Vw (11/26/2019 10:50 AM CDT) Specimen Narrative Performed At EXAMINATION: XR THORACOLUMBAR SPINE 2 VW [facility] CLINICAL HISTORY: M54.6 Pain in thoracic spine, M54. 5 Low back pain, M54.6 M54.5 IMPRESSION: 2 views of the thoracic spine were obtai eddy. There is severe exaggerated thoracic kyphosis. Compare d to the prior MRI of the thoracic spine dated October 21, 2019, there has be en no significant interval change in the severe compression fractures in volving T12, T9 and T7 vertebral bodies. There is no definite evidence of new compression fra cture. [id number] Procedure Note Hm Interface, Radiology Results Incoming - 11/26/2019 6:36 PM CDT EXAMINATION: XR THORACOLUMBAR SPINE 2 VW CLINICAL HISTORY: M54.6 Pain in thoraci c spine, M54.5 Low back pain, M54.6 M54.5 IMPRESSION: 2 views of the thoracic spine were obtai eddy. There is severe exaggerated thoracic kyp hosis. Compared to the prior MRI of the thoracic spine dated October 21, 2019, there has been no significant interval change in the severe compression fractures involving T12, T9 and T7 vertebral bodies. There is no definite evidence of new compression fra cture. [id number] Performing Organization Address City/State/Zipcode Phone Number [facility] [address] [place] [address] MRI Thoracic Spine Wo Contrast (10/21/2019 5:28 PM CDT) Specimen Narrative Performed At EXAMINATION: MRI THORACIC SPINE WO CON TRAST [facility] CLINICAL HISTORY: M54.14 Radiculopathy thoracic re [...] a nd signal with no focal lesion. [facility]-[id number] Procedure Note Interface, Radiology Results Incoming - 10/21/2019 5:50 [...] contour and signal with no focal lesion. [id number] Performing Organization Address [facility] Phone Number [facility] [address] [place] [address] XR Lumbar Spine 2 Or 3 Vw [...] L1-2. There is stable diffuse demineralization . [id number] Procedure Note Hm Interface, Radiology Results Incoming [...] L1-2. There is stable diffuse demineralization . [facility]-[id number] Performing Organization Address [facility] Phone Number [facility] [address] [place] [address] MRI Lumbar Spine Wo Contrast (10/15/2019 10:48 [...] levels. IMPRESSION: Stable exam compared with 02/01/2017. [id number] Procedure Note Hm Interface, Radiology Results - 10/15/2019 11:00 AM CDT EXAMINATION: MRI [...] levels. IMPRESSION: Stable exam compared with 02/01/2017. [id number] Performing Organization Address [facility]/Zipcode Phone Number [facility] [address] [place] [address] XR Lumbar Spine Ap Lateral Flexion And [...] aorta. Overlying soft t issues otherwise unremarkable. [facility]-[id number] Procedure Note Interface, Radiology Results Incoming - [...] aorta. Overlying soft t issues otherwise unremarkable. [id number] Performing Organization Address [facility] Phone Number [facility] [address] [place] [address] after 12/25/2018 Advance Directives For more information, please contact: [phone] Type Date Recorded Patient Supervisor Unloading Explanati on Advance Directives, Living Will and Medical Power of Manager Paid
[2019-12-26 08:35] LABS: Urine Blood 1+ (NEG); Urine Glucose NEGATIVE (NEG); Urine Protein NEGATIVE (NEG); Urine Specific Gravity 1.015 (1.005-1.030)
[2019-12-26 08:44] LABS: Urine Bacteria <20 /HPF (<20); Urine Culture Reflex Order NOT NEEDED
[2019-12-26] MEDS ORDERED: NA CHLORIDE 0.9% 500 ML ONE (08:49)
[2019-12-26 09:05] LABS: Absolute Lymphocytes (CBC) 1.1 K/uL (0.7-4.9); Basophils % 0.3 % (0-1.3); Hematocrit 38.3 % (36.0-45.0); Lymphocytes % 10.3 % (15.3-44.8); MPV 6.5 fL (7.6-11.3); RBC Red Blood Cell Count 4.13 M/uL (3.86-4.86)
[2019-12-26 09:29] LABS: BUN Blood Urea Nitrogen 8 mg/dL (7-18); Bicarbonate 25 mmol/L (21-32); Glucose Level 181 mg/dL (74-106); Potassium 3.9 mmol/L (3.5-5.1); Sodium Level 127 mmol/L (136-145); Troponin I < 0.02 ng/mL (0.0-0.045)
--- NOTE | 2019-12-26 09:47 | RAD REPORT ---
EXAM DESCRIPTION: CT - Head Brain Wo Cont - 12/26/2019 9:36 am CLINICAL HISTORY: Alteration of awareness/confusion COMPARISON: 2017 TECHNIQUE: Computed axial tomography of the head was obtained. IV contrast was not requested. All CT scans are performed using dose optimization technique as appropriate and may include automated exposure control or mA/KV adjustment according to patient size. FINDINGS: An intracranial bleed is not seen . Cerebral atrophy is present. No extra-axial fluid collection is noted. Small low-density area within the left thalamus likely old lacunar infarction Moderate to marked low-density areas within periventricular, deep and subcortical white matter likely represent ischemic changes secondary to small vessel disease. Fluid left maxillary sinus may indicate acute sinusitis IMPRESSION: No acute intracranial abnormality is seen. If patient's symptoms persist MRI of the bra in would be recommended.
--- NOTE | 2019-12-26 09:56 | RAD REPORT ---
EXAM DESCRIPTION: CT - Abdomen Pelvis W Contrast - 12/26/2019 9:36 am CLINICAL HISTORY: Abdominal pain COMPARISON: November 2019 TECHNIQUE: Computed axial tomography of the abdomen pelvis was obtained. 100 cc Isovue-300 was admin istered intravenously. Oral contrast was not requested which limits evaluation of bowel. All CT scans are performed using dose optimization technique as appropriate and may include automated exposure control or mA/KV adjustment according to patient size. FINDINGS: Large hiatal hernia The liver, spleen, pancreas, adrenal and kidneys appear unremarkable. There is no evidence of diverticulitis. Marked compression fractures involving the T9 and T12 vertebral bodies are unchanged. Multiple subacu te and old rib fractures IMPRESSION: No acute abnormality is displayed.
--- NOTE | 2019-12-26 09:59 | RAD REPORT ---
EXAM DESCRIPTION: Jono Single View12/26/2019 9:50 am CLINICAL HISTORY: Shortness of breath COMPARISON: September 2019 FINDINGS: Lungs appear clear of acute infiltrate. Heart is moderately enlarged. A large hiatal herni a No change in the appearance of left shoulder arthroplasty. Subacute and old rib fractures
--- NOTE | 2019-12-26 11:06 | ER ---
Nurse's Notes [facility] Name: Haydee De Jesus Age: 79 yrs Sex: Female : 1940 Arrival Date: 12/26/2019 Time: 08:10 Bed 4 Private MD: Diagnosis: Altered mental status, unspecified;Tachycardia, unspecified;Dehydration Presentation: 12/25 08:06 Chief complaint: EMS states: Family reports that her mental status has changed over the rb1 last two days. A \T\ O x 3, BP 140/80, P 127, BGL 231, has not taken diabetes medication this morning. She did fall two months ago and broke ribs and has a broken vertebrae. Initial Sepsis Screen: Does the patient meet any 2 criteria? Altered Mental Status. HR > 90 bpm. Yes. Risk Assessment: Do you want to hurt yourself or someone else? Patient reports no desire to harm self or others. Onset of symptoms was December 24, 2019. 08:06 Method Of Arrival: EMS: [facility] 08:06 Acuity: JOYCELYN 3 rb1 08:06 Coronavirus screen: Client denies travel out of the [place] in the last 14 days. At this rb1 time, the client does not indicate any symptoms associated with coronavirus-19. Ebola Screen: Patient denies travel to an Ebola-affected area in the 21 days before illness onset. Initial Sepsis Screen: Does the patient have a suspected source of infection? No. Patient's initial sepsis screen is negative. Triage Assessment: 08:06 General: Appears in no apparent distress. comfortable, slender, Behavior is calm, rb1 cooperative, Denies fever. Pain: Denies pain. Neuro: Level of Consciousness is awake, Oriented to person. Neuro: Level of Consciousness is confused, Oriented to. Cardiovascular: Capillary refill < 3 seconds. Respiratory: Airway is patent Respiratory effort is even, unlabored, Respiratory pattern is regular, symmetrical. GI: Last BM was December 26, 2019. incontinence. : incontinence. Historical: - Allergies: 08:06 Sulfa (Sulfonamide Antibiotics); rb1 - Home Meds: 08:06 pantoprazole 40 mg Oral TbEC 1 tab 2 times per day [Active]; Synthroid 50 mcg Oral tab rb1 1 tab once daily [Active]; metformin 500 mg Oral Tb24 1 tab 2 times per day [Active]; simvastatin 20 mg Oral tab 1 tab once daily [Active]; benazepril 10 mg Oral tab 1 tab once daily [Active]; alendronate 70 mg/75 mL Oral soln 75 mL once wkly [Active]; meloxicam 15 mg Oral tab 1 tab once daily [Active]; paroxetine HCl 10 mg Oral tab 1 tab once daily [Active]; sucralfate 1 gram Oral tab 1 tab 4 times per day [Active]; cyanocobalamin (vitamin B-12) 1,000 mcg/15 mL oral liqd [Active]; - PMHx: 08:06 Diabetes - NIDDM; Hyperlipidemia; Hypertension; Hypothyroidism; Osteoporosis; T8, T9 rb1 vertebrae fx.; - PSHx: 08:06 left arm; Appendectomy; bladder surgery; rb1 - Immunization history:: Adult Immunizations up to date. - Family history:: not pertinent. - Social history:: Smoking status: Patient/guardian denies using. - Hospitalizations: : No recent hospitalization is reported. Screenin:06 Abuse screen: Denies threats or abuse. Nutritional screening: reports decreased rb1 appetite.. Tuberculosis screening: No symptoms or risk factors identified. Fall Risk Fall in past 12 months (25 points). IV access (20 points). Ambulatory Aid- None/Bed Rest/Nurse Assist (0 pts). Gait- Normal/Bed Rest/Wheelchair (0 pts) Mental Status- Overestimates/Forgets Limitations (15 pts.). Total Delgado Fall Scale indicates High Risk Score (45 or more points). Fall prevention measures have been instituted. Side Rails Up X 2 Placed Close to Nursing Station 1:1 Attendant Assigned Frequent Obs/Assessments Occuring Family Present and informed to notify staff if the need to leave the bedside As available patient and family educated on Fall Prevention Program and Strategies. Assessment: 08:06 General: See triage assessment. rb1 08:45 Reassessment: Patient appears in no apparent distress at this time. No changes from rb1 previously documented assessment. at the bedside. 09:30 Reassessment: Pt. in radiology. rb1 10:34 Reassessment: Pt. is resting with eyes closed, respirations even, unlabored. rb1 11:30 Reassessment: Patient appears in no apparent distress at this time. Patient and/or rb1 family updated on plan of care and expected duration. Pain level reassessed. Patient is alert, oriented x 3, equal unlabored respirations, skin warm/dry/pink. 12:26 Reassessment: Patient appears in no apparent distress at this time. No changes from rb1 previously documented assessment. 13:05 Reassessment: Gave report to NIHARIKA Dennis. Information from the [facility] was given. All rb1 questions asked and answered. 13:26 Reassessment: Patient appears in no apparent distress at this time. Patient and/or rb1 family updated on plan of care and expected duration. Pain level reassessed. Patient is alert, oriented x 3, equal unlabored respirations, skin warm/dry/pink. Vital Signs: 08:06 BP 140 / 107; Pulse 115; Resp 20; Temp 97.7; Pulse Ox 97% on R/A; rb1 08:45 BP 146 / 118; Pulse 130; Resp 17; Pulse Ox 94% on 3 lpm NC; rb1 09:39 rb1 10:00 BP 144 / 96; Pulse 108; Resp 16; Pulse Ox 97% ; rb1 11:00 BP 163 / 95; Pulse 105; Resp 19; Pulse Ox 98% ; Pain 0/10; rb1 12:00 BP 165 / 98; Pulse 100; Resp 14; Pulse Ox 96% ; rb1 13:00 BP 163 / 91; Pulse 105; Resp 17; Temp 97.7; Pulse Ox 98% on 2 lpm NC; rb1 09:39 Pt. in radiology rb1 ED Course: 08:06 Arm band placed on right wrist. rb1 08:06 Patient has correct armband on for positive identification. Bed in low position. Call rb1 light in reach. Side rails up X 1. child monitor on. Pulse ox on. NIBP on. Warm blanket given. 08:10 Patient arrived in ED. rn 08:10 Anam Schaefer MD is Attending Physician. rn 08:20 Straight cath inserted, using sterile technique, 14 Fr. Specimen obtained. Returned dh3 clear yellow urine. Patient tolerated well. 08:23 Tabitha Aly, NIHARIKA is Primary Nurse. rb1 08:28 Triage completed. rb1 08:41 EKG done, by ED staff, reviewed by Anam Schaefer MD. dh3 08:50 Initial lab(s) drawn, by ar, sent to lab. First set of blood cultures drawn by me. dh3 Inserted saline lock: 22 gauge in left antecubital area, using aseptic technique. Blood collected. 08:52 Second set of blood cultures drawn by me. dh3 09:36 CT Head Brain wo Cont In Process Unspecified. EDMS 09:36 CT Abd/Pelvis - IV Contrast Only In Process Unspecified. EDMS 09:49 XRAY Chest (1 view) In Process Unspecified. EDMS 11:04 Jaylon Murillo MD is Hospitalizing Provider. rn 13:33 No provider procedures requiring assistance completed. Patient admitted, IV remains in rb1 place. Administered Medications: 08:54 Drug: NS 0.9% 500 ml Route: IV; Rate: bolus; Site: right antecubital; rb1 Outcome: 11:04 Decision to Hospitalize by Provider. rn 13:31 Patient left the ED. iw 13:31 Admitted to Tele accompanied by tech, family with patient, via wheelchair, room 404, rb1 with chart, Report called to NIHARIKA Dennis 13:31 Condition: stable 13:31 Instructed on the need for admit. rb1 Signatures: Dispatcher [employer] Julienne Perez, RN NIHARIKA Anam Schaefer MD MD rn Barber, Rebecca, RN RN rb1 Anusha Upton 3
--- NOTE | 2019-12-26 11:06 | EDPHYS ---
Physician Documentation [facility] Name: Haydee De Jesus Age: 79 yrs Sex: Female : 1940 Arrival Date: 12/26/2019 Time: 08:10 Bed 4 Private MD: ED Physician Anam Schaefer HPI: 12/25 08:40 This 79 yrs old Female presents to ER via EMS with complaints of Altered rn Mental Status. 08:40 The patient presents with decreased responsiveness. Onset: The symptoms/episode rn began/occurred 2 day(s) ago. Possible causes: unknown. Current symptoms: In the emergency department the patient's symptoms are unchanged from the initial presentation. It is unknown whether or not the patient has had similar symptoms in the past. Per EMS, patient with AMS for 2 days, no recent injury or fall, + decreased appetite, + mild cough, patient reports abd pain. . Historical: - Allergies: 08:06 Sulfa (Sulfonamide Antibiotics); rb1 - Home Meds: 08:06 pantoprazole 40 mg Oral TbEC 1 tab 2 times per day [Active]; Synthroid 50 mcg Oral tab rb1 1 tab once daily [Active]; metformin 500 mg Oral Tb24 1 tab 2 times per day [Active]; simvastatin 20 mg Oral tab 1 tab once daily [Active]; benazepril 10 mg Oral tab 1 tab once daily [Active]; alendronate 70 mg/75 mL Oral soln 75 mL once wkly [Active]; meloxicam 15 mg Oral tab 1 tab once daily [Active]; paroxetine HCl 10 mg Oral tab 1 tab once daily [Active]; sucralfate 1 gram Oral tab 1 tab 4 times per day [Active]; cyanocobalamin (vitamin B-12) 1,000 mcg/15 mL oral liqd [Active]; - PMHx: 08:06 Diabetes - NIDDM; Hyperlipidemia; Hypertension; Hypothyroidism; Osteoporosis; T8, T9 rb1 vertebrae fx.; - PSHx: 08:06 left arm; Appendectomy; bladder surgery; rb1 - Immunization history:: Adult Immunizations up to date. - Family history:: not pertinent. - Social history:: Smoking status: Patient/guardian denies using. - Hospitalizations: : No recent hospitalization is reported. ROS: 08:40 Constitutional: Negative for fever, chills, and weight loss, Eyes: Negative for injury, rn pain, redness, and discharge, Neck: Negative for injury, pain, and swelling, Cardiovascular: Negative for chest pain, palpitations, and edema, Respiratory: Negative for shortness of breath, wheezing, and pleuritic chest pain, Abdomen/GI: Negative for nausea, vomiting MS/Extremity: Negative for injury and deformity, Skin: Negative for injury, rash, and discoloration, Neuro: Negative for headache, numbness, tingling, and seizure. Exam: 08:40 Constitutional: This is a well developed, well nourished patient who is awake, alert, rn and in no acute distress. Head/Face: Normocephalic, atraumatic. ENT: dry MM Cardiovascular: Tachycardic, irregular Respiratory: Mild tachypnea, no retractions Abdomen/GI: soft, non-tender MS/ Extremity: Pulses equal, no cyanosis. Neurovascular intact. Full, normal range of motion. Equal circumference. Neuro: Awake and alert, GCS 15, oriented to person, and situation, not time. Cranial nerves II-XII grossly intact. Motor strength 4/5 in all extremities. Sensory grossly intact. Vital Signs: 08:06 BP 140 / 107; Pulse 115; Resp 20; Temp 97.7; Pulse Ox 97% on R/A; rb1 08:45 BP 146 / 118; Pulse 130; Resp 17; Pulse Ox 94% on 3 lpm NC; rb1 09:39 rb1 10:00 BP 144 / 96; Pulse 108; Resp 16; Pulse Ox 97% ; rb1 11:00 BP 163 / 95; Pulse 105; Resp 19; Pulse Ox 98% ; Pain 0/10; rb1 12:00 BP 165 / 98; Pulse 100; Resp 14; Pulse Ox 96% ; rb1 13:00 BP 163 / 91; Pulse 105; Resp 17; Temp 97.7; Pulse Ox 98% on 2 lpm NC; rb1 09:39 Pt. in radiology rb1 MDM: 08:10 Patient medically screened. rn 11:02 Differential Diagnosis: CVA, pneumonia, sepsis, TIA, UTI, volume depletion. rn Differential Diagnosis: electrolyte abnormality. Data reviewed: vital signs, nurses notes. Counseling: I had a detailed discussion with the patient and/or guardian regarding: the historical points, exam findings, and any diagnostic results supporting the discharge/admit diagnosis, lab results, radiology results, the need for further work-up and treatment in the hospital. Response to treatment: the patient's symptoms have mildly improved after treatment, and as a result, I will admit patient. Admission orders: after a detailed discussion of the patient's condition and case, the admit orders are written by me. ED course: Pt will be admitted for AMS, no acute findings in w/u here, neg ct head, neg UA, admitted to Dr. Murillo for further w/u and care.. 12/25 08:12 Order name: CBC with Diff; Complete Time: 09:24 rn 12/25 08:12 Order name: Basic Metabolic Panel; Complete Time: 10:26 rn 12/25 08:12 Order name: Procalcitonin; Complete Time: 10:26 rn 12/25 08:12 Order name: Urine Culture rn 12/25 08:12 Order name: Urine Microscopic Only; Complete Time: 08:51 rn 12/25 08:12 Order name: Blood Culture Adult (2) rn 12/25 08:31 Order name: Urine Dipstick--Ancillary (enter results); Complete Time: 08:51 bd 12/25 08:55 Order name: Add On-Lab bd 12/25 08:55 Order name: Troponin I; Complete Time: 10:26 [facility] 12/25 09:22 Order name: CREATININE WHOLE BLOOD; Complete Time: 09:24 [facility] 12/25 11:15 Order name: Lab Add On [facility] 12/25 11:17 Order name: Liver (Hepatic) Function; Complete Time: 13:21 [facility] 12/25 11:17 Order name: Lipase; Complete Time: 13:21 [facility] 12/25 11:45 Order name: Urinalysis [facility] 12/25 11:45 Order name: CBC with Automated Diff [facility] 12/25 11:45 Order name: CBC with Automated Diff [facility] 12/25 11:45 Order name: Comprehensive Metabolic Panel [facility] 12/25 11:45 Order name: Comprehensive Metabolic Panel [facility] 12/25 11:45 Order name: Magnesium [facility] 12/25 11:45 Order name: Magnesium [facility] 12/25 11:45 Order name: NT PRO-BNP [facility] 12/25 11:45 Order name: NT PRO-BNP [facility] 12/25 11:45 Order name: Phosphorus [facility] 12/25 11:45 Order name: Phosphorus [facility] 12/25 11:45 Order name: Protime (+INR) [facility] 12/25 11:45 Order name: Protime (+INR) [facility] 12/25 11:45 Order name: PTT, Activated Partial Thromb [facility] 12/25 11:45 Order name: PTT, Activated Partial Thromb [facility] 12/25 11:45 Order name: Troponin I [facility] 12/25 11:45 Order name: Troponin I [facility] 12/25 08:12 Order name: IV Start; Complete Time: 08:54 rn 12/25 08:12 Order name: Urine Dipstick-Ancillary (obtain specimen); Complete Time: 08:30 rn 12/25 08:12 Order name: XRAY Chest (1 view); Complete Time: 10:26 rn 12/25 08:12 Order name: CT Head Brain wo Cont; Complete Time: 10:26 rn 12/25 08:12 Order name: CT Abd/Pelvis - IV Contrast Only; Complete Time: 10:26 rn 12/25 08:12 Order name: EKG; Complete Time: 08:13 rn 12/25 08:12 Order name: EKG - Nurse/Tech; Complete Time: 08:54 rn 12/25 11:45 Order name: CONS Physician Consult [facility] 12/25 11:45 Order name: NPO [facility] 12/25 11:45 Order name: Troponin I [facility] Administered Medications: 08:54 Drug: NS 0.9% 500 ml Route: IV; Rate: bolus; Site: right antecubital; rb1 Disposition: 12/26/19 11:04 Hospitalization ordered by Jaylon Murillo for Observation. Preliminary diagnosis are Altered mental status, unspecified, Tachycardia, unspecified, Dehydration. - Bed requested for Telemetry/MedSurg (observation). - Status is Observation. iw - Condition is Stable. - Problem is new. - Symptoms have improved. Signatures: Dispatcher [employer] [facility] Kajal Oconnell Irene, Anam Rankin RN, MD MD rn Barber, Rebecca, RN RN rb1 Corrections: (The following items were deleted from the chart) 12:21 11:04 Hospitalization Ordered by Jaylon Murillo MD for Observation. Preliminary bd diagnosis is Altered mental status, unspecified; Tachycardia, unspecified; Dehydration. Bed requested for Telemetry/MedSurg (observation). Status is Observation. Condition is Stable. Problem is new. Symptoms have improved. rn 13:31 12:21 12/26/2019 11:04 Hospitalization Ordered by Jaylon Murillo MD for Observation. iw Preliminary diagnosis is Altered mental status, unspecified; Tachycardia, unspecified; Dehydration. Bed requested for Telemetry/MedSurg (observation). Status is Observation. Condition is Stable. Problem is new. Symptoms have improved. bd
[2019-12-26] MEDS ORDERED: ONDANSETRON 4 MG/2 ML VIAL IV PRN (11:24)
[2019-12-26] MEDS ORDERED: ACETAMINOPHEN 500 MG TAB PO PRN (11:24)
[2019-12-26 11:31] LABS: Albumin 3.2 g/dL (3.4-5.0); Bilirubin Direct 0.3 mg/dL (0-0.2); Bilirubin Total 0.8 mg/dL (0.2-1.0); Protein, Total 7.5 g/dL (6.4-8.2)
[2019-12-26] MEDS ORDERED: CEFTRIAXONE 1 GM/NS 50 ML 1 GM/50 ML BAG IV ONE (11:37)
--- NOTE | 2019-12-26 11:46 | P.HP ---
Certification for Inpatient Patient admitted to: Inpatient With expected LOS: >2 Midnights Patient will require the following post-hospital care: None Practitioner: I am a practitioner with admitting privileges, knowledge of patient current condition, hospital course, and medical plan of care. Services: Services provided to patient in accordance with Admission requirements found in Title 42 Section 412.3 of the Code of Federal Regulations Patient History Date of Service: 12/26/19 Reason for admission: Altered mental status History of Present Illness: Patient is an 79-year-old female who presents to the emergency room with confusion. She became confused over the last couple days. He had help her get to the bathroom and she was severely debilitated. He was walking her from the bathroom today and she suddenly collapsed in his arm. He was able to lay her down. He called EMS and they brought her into the hospital for further evaluation. In the emergency room, patient had imaging studies which were negative. 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 Patient's labs also did not reveal any significant abnormalities. She has significant abdominal pain. She appears to have a colitis or diverticulitis. She appears to also have toxic encephalopathy with the altered mentation. Will do blood cultures and urine cultures. Check procalcitonin level. She will need to be admitted to the hospital for further evaluation. Allergies No Known Drug Allergies Allergy (Verified 02/18/17 00:23) Unknown No Known Ananth Allergy (Uncoded 11/06/16 12:59) Unknown No Known Allergies Allergy (Uncoded 02/17/17 15:36) Unknown Sulfa (Sulfonamide Allergy (Uncoded 12/01/17 11:01) Unknown Home Medications: Benazepril HCl [Lotensin*] 10 mg PO DAILY 06/04/12 Metformin ER [Glucophage ER*] 500 mg PO BIDWM 06/04/12 Simvastatin 20 mg PO DAILY 06/04/12 Multivitamin [Multiple Vitamins] 1 each PO DAILY #0 tablet 06/08/12 Alendronate Sodium 70 mg PO ONCE 02/17/17 Meloxicam 15 mg PO DAILY 02/17/17 PARoxetine HCL [Paxil] 10 mg PO DAILY 02/17/17 Pantoprazole Sodium [Protonix] 40 mg PO BID 02/17/17 Sucralfate [Carafate -Tab] 1 gm PO QID 11/03/17 Hydrocodone/Acetaminophen [[place] 5-325 Tablet] 1 each PO Q8HP PRN #30 tablet 02/18/17 Cyanocobalamin (Vitamin B-12) [Cyanocobalamin Injection] 1,000 mcg IJ UD 12/26/19 Levothyroxine [Synthroid] 75 mcg PO [id number] 12/26/19 - Past Medical/Surgical History Diabetic: Yes -: DM -: HTN -: Chronic Back Pain -: Arthritis -: Appendix -: Left Shoulder -: Bladder - Family History Mother Medical History: Diabetes Father Medical History: Diabetes - Social History Alcohol use: No CD- Drugs: No Caffeine use: No Review of Systems 10-point ROS is otherwise unremarkable Physical Examination - Vital Signs Temperature: 100.4 F Blood Pressure: 90/50 Pulse: 111 Respirations: 22 Pulse Ox (%): 92 - Physical Exam General: Confused HEENT: Atraumatic, Normocephalic Neck: Supple, 2+ carotid pulse no bruit, JVD not distended, No Thyromegaly Respiratory: Clear to auscultation bilaterally, Diminished Cardiovascular: Regular rate/rhythm, No murmurs Gastrointestinal: Hypoactive, No guarding, Rigidity, Tenderness, Rebound Musculoskeletal: No clubbing, No swelling Neurological: Normal tone, Sensation intact, Cranial nerves 3-12 intact, Abnormal gait, Abnormal strength - Studies Laboratory Data (last 24 hrs) 12/26/19 08:50: Total Bilirubin 0.8, AST 19, ALT 13, Alkaline Phosphatase 116, Lipase 160 12/26/19 08:50: Sodium 127 L, Potassium 3.9, BUN 8, Creatinine 1.07, Glucose 181 H, Troponin I < 0.02 12/26/19 08:50: WBC 11.0 H, Hgb 12.7, Hct 38.3, Plt Count 455 H Assessment & Plan - Problems (Diagnosis) (1) Altered mental status Current Visit: Yes Status: Acute (2) Abdominal pain Current Visit: Yes Status: Acute (3) Syncope and collapse Current Visit: Yes Status: Acute (4) Fever Current Visit: Yes Status: Acute (5) Toxic encephalopathy Current Visit: Yes Status: Acute (6) HTN (hypertension) Current Visit: Yes Status: Acute (7) DM2 (diabetes mellitus, type 2) Current Visit: Yes Status: Acute - Plan Plan: 1. Continue with IV hydration. 2. Continue with IV antibiotics 3. Blood culture x2 4. Pain control 5. Monitor labs including lactate and pro calcitonin level 6. Strict blood pressure and blood sugar control 7. GI and DVT prophylaxis Discharge Plan: Home Plan to discharge in: Greater than 2 days - Advance Directives Does patient have a Living Will: No Does patient have a Durable POA for Healthcare: No - Code Status/Comfort Care Code Status Assessed: Yes Code Status: Full Code Critical Care: No Time Spent Managing PTS Care (In Minutes): 45
[2019-12-26] MEDS ORDERED: CEFTRIAXONE/SWI 1gm 1 GM/10 ML SYR IV SCH (12:00)
[2019-12-26] MEDS ORDERED: NA CHLORIDE 0.9% 1,000 ML IV SCH (12:00)
[2019-12-26 14:15] VITALS: BMI 17.6
[2019-12-26] MEDS: NA CHLORIDE 0.9% 1,000 ML IV SCH ×2 (15:41→21:04)
[2019-12-26] MEDS ORDERED: SODIUM CHLORIDE 0.9% 10ML INJ IV PRN (15:42)
[2019-12-26] MEDS ORDERED: PANTOPRAZOLE 40 MG INJ IVP ONE (16:00)
[2019-12-26 16:47] LABS: Potassium 4.1 mmol/L (3.5-5.1)
[2019-12-26] MEDS: METRONIDAZOLE 500mg IVPB 500 MG/100 ML BAG IV SCH (17:14)
[2019-12-26] MEDS: SUCRALFATE 1 GM TABLET PO SCH ×3 (17:14→21:00)
[2019-12-26] MEDS ORDERED: PANTOPRAZOLE 40 MG INJ IVP SCH (21:00)
[2019-12-27] MEDS: METRONIDAZOLE 500mg IVPB 500 MG/100 ML BAG IV SCH ×4 (00:27→23:59)
[2019-12-27] MEDS: NA CHLORIDE 0.9% 1,000 ML IV SCH ×3 (00:31→23:59)
[2019-12-27] MEDS: CEFTRIAXONE/SWI 1gm 1 GM/10 ML SYR IV SCH ×2 (03:46→16:19)
[2019-12-27 04:04] LABS: Absolute Lymphocytes (CBC) 2.1 K/uL (0.7-4.9); Basophils % 0.5 % (0-1.3); Lymphocytes % 24.4 % (15.3-44.8); MPV 6.6 fL (7.6-11.3); RBC Red Blood Cell Count 3.36 M/uL (3.86-4.86)
[2019-12-27 04:19] LABS: ALT/SGPT 11 U/L (12-78); AST/SGOT 18 U/L (15-37); Albumin 2.5 g/dL (3.4-5.0); Alkaline Phosphatase 85 U/L (45-117); BUN Blood Urea Nitrogen 5 mg/dL (7-18); Bicarbonate 28 mmol/L (21-32); Bilirubin Total 0.6 mg/dL (0.2-1.0); Glucose Level 80 mg/dL (74-106); Magnesium 1.5 mg/dL (1.8-2.4); NT PRO-BNP 873 pg/mL (<450); Phosphorus 2.7 mg/dL (2.5-4.9); Potassium 3.8 mmol/L (3.5-5.1); Protein, Total 5.7 g/dL (6.4-8.2); Sodium Level 135 mmol/L (136-145)
[2019-12-27] MEDS ORDERED: VANCOMYCIN 1 GM in NA CHLORIDE 0.9% 500 ML IVPB ONE (06:41)
[2019-12-27] MEDS ORDERED: VANCOMYCIN/NS 1 gm 1 GM/250 ML BAG IV SCH ×2 (07:00→08:00)
[2019-12-27] MEDS: SUCRALFATE 1 GM TABLET PO SCH ×4 (09:00→20:15)
[2019-12-27] MEDS ORDERED: KCL 20 MEQ/100 mL IVPB 20 MEQ/100 ML BAG IV SCH (09:00)
[2019-12-27] MEDS ORDERED: Magnesium Sulfate 2gm IVPB 2 G/50 ML BAG IV ONE (09:00)
[2019-12-27] MEDS: PANTOPRAZOLE 40 MG INJ IVP SCH ×2 (09:28→20:15)
[2019-12-27] MEDS: ENOXAPARIN 40 MG/0.4 ML SQ SCH (09:28)
[2019-12-27] MEDS ORDERED: LORazepam 2 MG/ML VIAL IV ONE (11:18)
--- NOTE | 2019-12-27 12:26 | RAD REPORT ---
EXAM DESCRIPTION: MRI - Brain W/Wo Cont - 12/27/2019 11:54 am CLINICAL HISTORY: ams Headache, drowsiness, alteration of awareness. COMPARISON: Head Brain Wo Cont dated 12/26/2019 TECHNIQUE: Multi-sequence, multiplanar MR imaging of the brain was performed with contrast. FINDINGS: Examination is limited by patient motion artifact. Significant periventricular and deep white matter T2 and FLAIR hyperintensity is present presumably r elated to chronic microvascular ischemic changes. No gross intracranial hemorrhage.No intracranial ma ss. No gross evidence of acute infarction.. Post-contrast sequences show no gross pathologic enhancement. IMPRESSION: Exam is quite limited by excessive patient motion. Within this limitation, there is no g ross acute finding such as CVA. No pathologic post-contrast enhancement suspected.
[2019-12-27] MEDS ORDERED: METOPROLOL TAR 50 MG TAB PO ONE (13:40)
--- NOTE | 2019-12-27 15:07 | P.PN ---
Subjective Date of Service: 12/27/19 Subjective: No new changes, No C/O voiced Patient was found to have gram-positive bacteremia. Patient had an MRI of the brain: No acute abnormality. Patient continues on IV antibiotics. For continue with IV hydration. Start physical therapy. Review of Systems 10-point ROS is otherwise unremarkable Physical Examination - Vital Signs Temperature: 98 F Blood Pressure: 110/60 Pulse: 90 Respirations: 16 Pulse Ox (%): 95 - Physical Exam General: Alert, In no apparent distress, Confused HEENT: EOMI Respiratory: Clear to auscultation bilaterally, Normal air movement Cardiovascular: Regular rate/rhythm, Normal S1 S2 Gastrointestinal: Normal bowel sounds, No rebound, No guarding, Distended, Tenderness Musculoskeletal: No tenderness Integumentary: No rashes Neurological: Sensation intact, Cranial nerves 3-12 intact - Studies Medications List Reviewed: Yes Assessment & Plan - Problems (Diagnosis) (1) Bacteremia due to Gram-positive bacteria Current Visit: Yes Status: Acute (2) Altered mental status Current Visit: Yes Status: Acute (3) Abdominal pain Current Visit: Yes Status: Acute (4) Syncope and collapse Current Visit: Yes Status: Acute (5) Fever Current Visit: Yes Status: Acute (6) Toxic encephalopathy Current Visit: Yes Status: Acute (7) HTN (hypertension) Current Visit: Yes Status: Acute (8) DM2 (diabetes mellitus, type 2) Current Visit: Yes Status: Acute - Plan Plan: 1. Continue with IV hydration. 2. Continue with IV antibiotics 3. Patient w/ Gram-positive bacteremia; continue with IV antibiotic therapy 4. Pain control 5. Monitor labs including lactate and pro calcitonin level 6. Strict blood pressure and blood sugar control 7. Continue anti-platelet therapy and statin therapy 8. GI and DVT prophylaxis Discharge Plan: Home Plan to discharge in: Greater than 2 days - Advance Directives Does patient have a Living Will: No Does patient have a Durable POA for Healthcare: No - Code Status/Comfort Care Code Status: Full Code Critical Care: No Time Spent Managing PTS Care (In Minutes): 35
[2019-12-27] MEDS: METOPROLOL TAR 50 MG TAB PO SCH (17:38)
[2019-12-27] MEDS: GLUCERNA SHAKE 237 ML CAN PO SCH (20:16)
--- NOTE | 2019-12-27 20:59 | CON ---
Reason For Consultation: Consultation called because of altered mental status. History Of Present Illness: Ms. De Jesus is an 79-year-old right-handed patient with diabe rebeka mellitus, dyslipidemia, who comes in because of a few days of confusion. The patient's w as in the room and provided some information. He said she has not been eating well and losing weight and not moving around well for several weeks, but over several days, did become more confused, could not answer some questions when he would speak with her, forget conversations, and disoriented to tracy ce and situation. She did have chronic vertebral fractures and rib fractures from falls, but states that overall she has been kind of failing to thrive. At [facility], she had blood cultures positive for staph and seemed to have a toxic encephalopathy and is now treated with antibiotics. He r head CT scan and brain MRI were negative for acute ischemic or hemorrhagic changes. Brain MRI harley rkable for significant small vessel ischemic disease, but again no acute ischemic or hemorrhagic find ings. Past Medical History: As indicated including arthritis and chronic back pain. Past Surgical History: Appendectomy, left shoulder surgery. Allergies: SULFA DRUGS. Medications: At home, Lotensin 10 mg daily, metformin 500 mg twice a day, simvastatin 10 mg daily, m ultivitamin daily, alendronate 70 mg daily, meloxicam 15 mg daily, Paxil 10 mg daily, Protonix 40 mg twice daily, sucralfate 1 g 4 times daily, [place] 5/325 one every 8 hours as needed, vitamin B12 1000 mcg injection monthly, Synthroid 75 mcg daily. Family History: Positive for diabetes in mother and father. Social History: The patient resides with at home. No alcohol, IV drugs, or cigarettes. Review of Systems: As indicated. She has failure thrive with some weight loss, difficulty with swallowing and poor appe tite, actually more poor appetite than swallowing difficulty, then some confusion, disorientation. O therwise, no focal findings in terms of her review of systems. Physical Examination: Vital Signs: Blood pressure 140/67, pulse 65, respiratory rate 16, temperature 98, T-max of 100.4, o xygen saturation 100% on 3 L of oxygen. Weight 90 pounds, height 5 feet, BMI 17.6. General: Ms. De Jesus is lying in bed. She is in no acute distress. HEENT: Normocephalic, atraumatic. Sclerae anicteric. Oropharynx is moist and pink. Neck: Supple. Chest: Clear. Extremities: Some evidence of mild edema in the legs, but otherwise no cyanosis, no clubbing. Neurologic: She is alert and oriented to person, place. She follows commands appropriately. She wa s able to identify the instructions and cross the midline with her responses. Cranial nerves, she ellis s no focal deficits. On motor, she has diffuse weakness, 4/5 in the upper and lower extremities. No focal findings. Sensory exam, no focal loss of sensation in the arms or legs. Coordination is slow with no focal findings on the right or left side. Reflexes are depressed in all extremities. No fo kinza findings there. She will be ambulated with the physical therapist and she likely requires gait b elt and her did indicate she has not been walking well for several weeks. Laboratory Studies: Sodium 135, potassium 3.8, chloride 101, carbon dioxide 28, BUN 5, creatinine 0. 61. Procalcitonin and lactic acid are negative for sepsis. Magnesium is low at 1.5. White blood ce ll count was 11 yesterday, today 8.7 and neutrophils are 63.5, down from 84.9. INR is 1. Urinalysis shows 5 to 10 epithelial cells, 5 to 10 red blood cells, 1+ blood, negative esterase, negative nitri te. The blood cultures did grow positive in the aerobic bottle for gram-positive cocci in clusters. Anaerobic cultures negative. COVID-19 is negative. Assessment: Ms. De Jesus is an 79-year-old patient with likely chronic small vessel ischemic disease producing a baseline vascular dementia, superimposed, it is an acute, likely toxic encephalopathy fr om her bacteremia. She does not have sepsis by procalcitonin and lactic acid. She does have a T-max of 100.4. At this point, she is on IV antibiotics per Dr. Murillo, including Rocephin and Flagyl, and she has electrolyte replacement including magnesium and potassium. Blood pressure is managed. Blood sugar also managed. Plan: 1.We will follow up on EEG. 2.Continue with management as indicated, that is IV antibiotics as appropriate. 3.Nutrition may require addressing she should have high-protein drinks such as Ensure plus at least twice daily. 4.She may require some therapy at home, perhaps Home Health for physical and occupational therapy wh en she is discharged. She should hydrate with about 6 or 8 glasses of water daily, and she may benef it from 1 small aspirin 81 mg daily. SANDY Voice ID: [id number] Report ID: [id number]
[2019-12-28] MEDS: HYDRALAZINE HCL 20 MG/ML VIAL IV PRN (01:34)
[2019-12-28] MEDS: CEFTRIAXONE/SWI 1gm 1 GM/10 ML SYR IV SCH ×2 (03:50→16:14)
[2019-12-28 04:37] LABS: BUN Blood Urea Nitrogen 5 mg/dL (7-18); Bicarbonate 18 mmol/L (21-32); Glucose Level 96 mg/dL (74-106); Sodium Level 135 mmol/L (136-145)
[2019-12-28] MEDS: METOPROLOL TAR 50 MG TAB PO SCH ×2 (05:20→17:01)
[2019-12-28] MEDS: VANCOMYCIN 750 MG in NA CHLORIDE 0.9% 150 ML IVPB SCH (05:21)
[2019-12-28] MEDS: ENOXAPARIN 40 MG/0.4 ML SQ SCH (08:47)
[2019-12-28] MEDS: SUCRALFATE 1 GM TABLET PO SCH ×4 (08:47→20:23)
[2019-12-28] MEDS: METRONIDAZOLE 500mg IVPB 500 MG/100 ML BAG IV SCH ×2 (08:47→16:13)
[2019-12-28] MEDS: PANTOPRAZOLE 40 MG INJ IVP SCH ×2 (08:47→20:23)
[2019-12-28] MEDS: GLUCERNA SHAKE 237 ML CAN PO SCH ×2 (08:48→20:23)
[2019-12-28] MEDS: NA CHLORIDE 0.9% 1,000 ML IV SCH (16:14)
[2019-12-29] MEDS: METRONIDAZOLE 500mg IVPB 500 MG/100 ML BAG IV SCH ×2 (01:27→08:46)
[2019-12-29] MEDS: ALPRAZOLAM 0.25 MG TABLET PO PRN ×2 (04:02→22:40)
[2019-12-29] MEDS: CEFTRIAXONE/SWI 1gm 1 GM/10 ML SYR IV SCH ×2 (04:02→16:00)
[2019-12-29] MEDS: NA CHLORIDE 0.9% 1,000 ML IV SCH ×3 (05:00→20:37)
[2019-12-29] MEDS: VANCOMYCIN 750 MG in NA CHLORIDE 0.9% 150 ML IVPB SCH (06:11)
[2019-12-29] MEDS: METOPROLOL TAR 50 MG TAB PO SCH ×2 (06:12→17:52)
[2019-12-29] MEDS: GLUCERNA SHAKE 237 ML CAN PO SCH ×2 (08:44→20:37)
[2019-12-29] MEDS: ENOXAPARIN 40 MG/0.4 ML SQ SCH (08:49)
[2019-12-29] MEDS: SUCRALFATE 1 GM TABLET PO SCH ×4 (08:52→22:30)
[2019-12-29] MEDS: PANTOPRAZOLE 40 MG INJ IVP SCH ×2 (08:52→20:37)
[2019-12-29] MEDS: HYDRALAZINE HCL 20 MG/ML VIAL IV PRN ×2 (08:57→16:33)
--- NOTE | 2019-12-29 15:21 | P.PN ---
Subjective Date of Service: 12/28/19 Patient's mentation has improved. Blood cultures were positive for gram- positive bacteremia. Again in the and sensitivities pending. Urine culture positive for E coli. Less than 10,000 colonies however. Continue with antibiotic therapy pending culture results. Patient still is requiring a lot of support with therapy. The states he is not able the care for right now at home until she gets stronger. She has significant kyphosis in this may be limiting to her ability to get stronger. She does appear to have dementia as well. Neurology consultation appreciated. Will await for fdc facility placement. Review of Systems is unable to be obtained Physical Examination - Vital Signs Temperature: 98.3 F Blood Pressure: 159/74 Pulse: 76 Respirations: 18 Pulse Ox (%): 95 - Physical Exam General: Alert, Demented Respiratory: Clear to auscultation bilaterally, Normal air movement Cardiovascular: Regular rate/rhythm, Normal S1 S2, No murmurs Gastrointestinal: Normal bowel sounds, Soft and benign, Non-distended, No tenderness, No rebound, No guarding Musculoskeletal: No clubbing - Studies Medications List Reviewed: Yes Assessment & Plan - Problems (Diagnosis) (1) Bacteremia due to Gram-positive bacteria Current Visit: Yes Status: Acute (2) Altered mental status Current Visit: Yes Status: Acute (3) Abdominal pain Current Visit: Yes Status: Acute (4) Syncope and collapse Current Visit: Yes Status: Acute (5) Fever Current Visit: Yes Status: Acute (6) Toxic encephalopathy Current Visit: Yes Status: Acute (7) HTN (hypertension) Current Visit: Yes Status: Acute (8) DM2 (diabetes mellitus, type 2) Current Visit: Yes Status: Acute - Plan Plan: continue with plan of care as mentioned below: 1. Continue with IV hydration. 2. Continue with IV antibiotics 3. Patient w/ Gram-positive bacteremia; continue with IV antibiotic therapy 4. Pain control 5. Did well with physical therapy. Severe kyphosis makes it difficult for her to keep her balance. Has been unable to really care for her. Recommended assisted living or fdc facility placement. Case Management consultation will be pending. 6. Strict blood pressure and blood sugar control 7. Continue anti-platelet therapy and statin therapy 8. GI and DVT prophylaxis Discharge Plan: Other Plan to discharge in: 48 Hours - Advance Directives Does patient have a Living Will: No Does patient have a Durable POA for Healthcare: No - Code Status/Comfort Care Code Status: Full Code Critical Care: No Time Spent Managing PTS Care (In Minutes): 35
[2019-12-29] MEDS ORDERED: LORazepam 2 MG/ML VIAL IV ONE (16:30)
[2019-12-30] MEDS: CEFTRIAXONE/SWI 1gm 1 GM/10 ML SYR IV SCH (04:36)
[2019-12-30] MEDS: NA CHLORIDE 0.9% 1,000 ML IV SCH ×2 (05:42→16:37)
[2019-12-30] MEDS: METOPROLOL TAR 50 MG TAB PO SCH ×2 (05:53→16:36)
--- NOTE | 2019-12-30 05:57 | P.PN ---
Subjective Date of Service: 12/29/19 Patient still with a lot of confusion. Most likely has dementia. Has been unable to really care for her at home. We will await case management consultation. May benefit from assisted living or half-way facility placement. Review of Systems 10-point ROS is otherwise unremarkable Physical Examination - Vital Signs Temperature: 98.3 F Blood Pressure: 159/74 Pulse: 76 Respirations: 18 Pulse Ox (%): 95 - Physical Exam General: Alert, In no apparent distress, Oriented x3 Respiratory: Clear to auscultation bilaterally, Normal air movement Cardiovascular: Regular rate/rhythm, Normal S1 S2 Gastrointestinal: Normal bowel sounds, Soft and benign, Non-distended, No tenderness Musculoskeletal: No clubbing, No swelling, No tenderness Integumentary: No rashes Neurological: Sensation intact, Cranial nerves 3-12 intact - Studies Medications List Reviewed: Yes Assessment & Plan - Problems (Diagnosis) (1) Altered mental status Current Visit: Yes Status: Acute (2) Abdominal pain Current Visit: Yes Status: Acute (3) Syncope and collapse Current Visit: Yes Status: Acute (4) Fever Current Visit: Yes Status: Acute (5) Toxic encephalopathy Current Visit: Yes Status: Acute (6) HTN (hypertension) Current Visit: Yes Status: Acute (7) DM2 (diabetes mellitus, type 2) Current Visit: Yes Status: Acute - Plan Plan: continue with plan of care as mentioned below: 1. Continue with IV hydration. 2. Continue with IV antibiotics; Just on Rocephin. 3. Patient w/ Gram-positive bacteremia; Most likely skin contamination. DC vancomycin and Zosyn 4. Pain control 5. Did well with physical therapy. Severe kyphosis makes it difficult for her to keep her balance. Has been unable to really care for her. Recommended assisted living or half-way facility placement. Case Management consultation will be pending. 6. Strict blood pressure and blood sugar control 7. Continue anti-platelet therapy and statin therapy 8. GI and DVT prophylaxis Discharge Plan: Other Plan to discharge in: Greater than 2 days - Advance Directives Does patient have a Living Will: No Does patient have a Durable POA for Healthcare: No - Code Status/Comfort Care Code Status: Full Code Critical Care: No Time Spent Managing PTS Care (In Minutes): 35
[2019-12-30 07:15] LABS: Absolute Lymphocytes (CBC) 1.3 K/uL (0.7-4.9); Basophils % 0.9 % (0-1.3); Hematocrit 33.2 % (36.0-45.0); Lymphocytes % 18.4 % (15.3-44.8); MPV 6.9 fL (7.6-11.3); RBC Red Blood Cell Count 3.59 M/uL (3.86-4.86)
[2019-12-30 07:28] LABS: BUN Blood Urea Nitrogen 2 mg/dL (7-18); Bicarbonate 23 mmol/L (21-32); Glucose Level 116 mg/dL (74-106); Sodium Level 136 mmol/L (136-145)
[2019-12-30 07:35] LABS: Potassium 2.4 mmol/L (3.5-5.1)
[2019-12-30] MEDS: PANTOPRAZOLE 40 MG INJ IVP SCH (08:06)
[2019-12-30] MEDS: ENOXAPARIN 40 MG/0.4 ML SQ SCH (08:06)
[2019-12-30] MEDS: SUCRALFATE 1 GM TABLET PO SCH ×4 (08:06→21:31)
[2019-12-30] MEDS: GLUCERNA SHAKE 237 ML CAN PO SCH ×2 (08:07→21:32)
[2019-12-30] MEDS: KCL 20 MEQ/100 mL IVPB 20 MEQ/100 ML BAG IV SCH ×3 (08:19→12:18)
--- NOTE | 2019-12-30 08:57 | ECHO ---
HEIGHT: 5 ft 0 in WEIGHT: 90 lb 3.2 oz DATE OF STUDY: 12/27/[address]: Jaylon Mruillo MD 2-DIMENSIONAL: YES M.MODE: YES DOPPLER: YES COLOR FLOW: YES TDS: NO PORTABLE: NO DEFINITY: NO BUBBLE STUDY: NO DIAGNOSIS: ELEVATED TROPONIN CARDIAC HISTORY: CATHERIZATION: NO SURGERY: NO PROSTHETIC VALVE: NO PACEMAKER: NO MEASUREMENTS (cm) DIASTOLIC (NORMALS) SYSTOLIC (NORMALS) IVSd 0.8 (0.6-1.2) LA Diam 1.9 (1.9-4.0) LVEF 56% LVIDd 4.2 (3.5-5.7) LVIDs 3.0 (2.0-3.5) %FS 29% LVPWd 0.9 (0.6-1.2) Ao Diam 3.0 (2.0-3.7) 2 DIMENSIONAL ASSESSMENT: RIGHT ATRIUM: NORMAL LEFT ATRIUM: NORMAL RIGHT VENTRICLE: NORMAL LEFT VENTRICLE: NORMAL TRICUSPID VALVE: NORMAL MITRAL VALVE: MITRAL ANNULAR CALCIFCATION PULMONIC VALVE: NORMAL AORTIC VALVE: SCLEROSIS PERICARDIAL EFFUSION: NONE AORTIC ROOT: NORMAL LEFT VENTRICULAR WALL MOTION: NORMAL. DOPPLER/COLOR FLOW: NORMAL. COMMENTS: TECHNICALLY DIFFICULT STUDY. AORTIC SCLEROSIS - NO STENOSIS. MITRAL ANNULAR CALCIFICATION. NORMAL EJECTION FRACTION. NO WALL MOTION ABNORMALITY. TECHNOLOGIST: MERON ROBERTS
--- NOTE | 2019-12-30 14:16 | RAD REPORT ---
EXAM DESCRIPTION: RAD - Barium Swallow Modified - 12/30/2019 2:03 pm CLINICAL HISTORY: Dysphagia Difficulty swallowing, pain COMPARISON: Abdomen Pelvis W Contrast dated 12/26/2019 TECHNIQUE: The patient was given liquid, semi-solid and solid forms of barium. Lateral view fluorosc opic imaging was performed in conjunction with speech pathology service. FINDINGS: LARYNGEAL PENETRATION- NOT CLEARED WITH THIN, CLEARED COUGH, (CUED COUGH EJECTED FROM AIRWAY) PHARYNGEAL RESIDUE MILD VALLECULAR, PYRIFORM AND POSTERIOR WALL MINIMUM WITH ALL CONSISTENCIES Total fluoroscopy time: 5 minutes and 33 seconds
--- NOTE | 2019-12-30 14:35 | EEG ---
CHART: [id number] TEST ID#: [id number] DATE OF STUDY: 12/27/2019 THE EEG WAS RECORDED PORTABLE IN THE PATIENT'S ROOM ON A 14 CHANNEL MACHINE. ELECTRODES WERE APPLIED IN THE USUAL MANNER USING THE INTERNATIONAL 10-20 SYSTEM. THE WAKING BACKGROUND RHYTHM IN THIS RECORD CONSISTS OF FAIRLY WELL DEVELOPED AND FAIRLY WELL ORGANIZED WAVES OF 8.5 HZ., MAXIMAL IN THE POSTERIOR HEAD REGIONS WHICH ATTENUATE NORMALLY WITH EYE OPENING. SHE WAS ASLEEP THROUGHOUT MOST OF THE STUDY. HOWEVER, MODERATE VOLTAGE 1.5-3 HZ ACTIVITY WAS EXPRESSED IN THE FRONTAL AND CENTRAL REGIONS INTERMITTENTLY. THERE ARE NO FOCAL OR LATERALIZING FEATURES. NO EPILEPTIFORM ACTIVITY APPEARS. SLEEP OCCURRED NATURALLY. IN ADDITION NORMAL SLEEP PATTERNS ARE PRESENT. HYPERVENTILATION WAS NOT PERFORMED. PHOTIC STIMULATION PRODUCED WAS NOT PERFORMED. IMPRESSION: THIS IS A MILDLY ABNORMAL EEG DUE TO A MILDLY SLOW BACKGROUND. THIS IS A NON-SPECIFIC FINDING INDICATING THE PRESENCE OF A MILD DIFFUSE DISTURBANCE IN CEREBRAL FUNCTION.
--- NOTE | 2019-12-30 15:20 | P.PN ---
Subjective Date of Service: 12/30/19 Chief Complaint: Altered mental status Subjective: Improving, Demented Physical Examination - Vital Signs Temperature: 97.6 F Blood Pressure: 188/87 Pulse: 79 Respirations: 20 Pulse Ox (%): 93 - Physical Exam General: Alert, Demented HEENT: Atraumatic Neck: Supple Respiratory: Clear to auscultation bilaterally, Normal air movement Cardiovascular: Normal pulses, Regular rate/rhythm Musculoskeletal: No tenderness, No warmth Neurological: Dementia - Studies Medications List Reviewed: Yes Assessment & Plan Discharge Plan: Other (SNF then likely half-way care) Plan to discharge in: 48 Hours - Code Status/Comfort Care Code Status Assessed: Yes (Patient is DNR) Code Status: Do Not Attempt Resuscitat Physician Review Additional Text: Impression: Toxic encephalopathy with UTI-urine culture positive for E coli Hypertension Diabetes mellitus type 2 Dementia Plan: Medications reviewed. Discuss with pharmacy. Will transition IV antibiotic therapy to oral. Patient had some dysphagia. MDS ordered. Continue with recommendations by speech. Patient with underlying dementia. Case discussed with family about advanced directives. Spoke with who takes care of her. It is been getting more difficult. Recommended skilled placement and likely long-term care thereafter. Continue with current medications. Will review blood pressure medication and diabetic treatment. Will adjust accordingly. Will discuss further with social service technician about plan of care. Spoke to and daughter concerning advanced directives. He says that she is DNR. Time Spent Managing Pts Care (In Minutes): 55
[2019-12-30] MEDS: HYDRALAZINE HCL 20 MG/ML VIAL IV PRN (17:57)
[2019-12-30] MEDS: ATORVASTATIN 10 MG TAB PO SCH (21:31)
[2019-12-30] MEDS: CEPHALEXIN 500 MG CAP PO SCH (21:31)
[2019-12-30] MEDS: PANTOPRAZOLE 40MG TABLET PO SCH (21:31)
[2019-12-31 04:22] LABS: BUN Blood Urea Nitrogen 2 mg/dL (7-18); Bicarbonate 24 mmol/L (21-32); Glucose Level 105 mg/dL (74-106); Sodium Level 138 mmol/L (136-145)
[2019-12-31 04:29] LABS: Magnesium 1.2 mg/dL (1.8-2.4); Potassium 2.9 mmol/L (3.5-5.1)
[2019-12-31] MEDS: Magnesium Sulfate 2gm IVPB 2 G/50 ML BAG IV ONE ×2 (04:57→06:56)
[2019-12-31] MEDS: KCL 20 MEQ/100 mL IVPB 20 MEQ/100 ML BAG IV SCH ×4 (04:57→14:23)
[2019-12-31] MEDS: METOPROLOL TAR 50 MG TAB PO SCH ×2 (05:50→17:54)
[2019-12-31] MEDS: LEVOTHYROXINE SOD 0.075 MG TAB PO SCH (05:50)
[2019-12-31] MEDS: ENOXAPARIN 40 MG/0.4 ML SQ SCH (08:07)
[2019-12-31] MEDS: CEPHALEXIN 500 MG CAP PO SCH ×2 (08:08→20:02)
[2019-12-31] MEDS: MULTIVITAMIN TAB PO SCH (08:08)
[2019-12-31] MEDS: PARoxetine HCL 10 MG TAB PO SCH (08:08)
[2019-12-31] MEDS: PANTOPRAZOLE 40MG TABLET PO SCH ×2 (08:08→20:02)
[2019-12-31] MEDS: SUCRALFATE 1 GM TABLET PO SCH ×4 (08:08→20:02)
[2019-12-31] MEDS: GLUCERNA SHAKE 237 ML CAN PO SCH ×2 (08:08→20:04)
[2019-12-31] MEDS: BENAZEPRIL 10 MG TAB PO SCH (08:08)
[2019-12-31] MEDS ORDERED: HOME MED 1 EA UNK (Simvastatin [Simvastatin] 20 MG) PO SCH (09:00)
[2019-12-31] MEDS: NA CHLORIDE 0.9% 1,000 ML IV SCH (10:56)
--- NOTE | 2019-12-31 13:46 | P.PN ---
Subjective Date of Service: 12/31/19 Chief Complaint: Altered mental status Subjective: Improving, Demented Physical Examination - Vital Signs Temperature: 97.4 F Blood Pressure: 121/58 Pulse: 73 Respirations: 18 Pulse Ox (%): 95 - Physical Exam General: Alert, Cooperative, Demented HEENT: Atraumatic Neck: Supple Respiratory: Clear to auscultation bilaterally, Normal air movement Cardiovascular: Normal pulses, Regular rate/rhythm Neurological: Normal speech, Normal strength at 5/5 x4 extr, Normal tone, Dementia - Studies Microbiology Data (last 24 hrs): 12/26/19 08:52 Blood - Blood Aerobic Blood Culture - Final 12/26/19 08:52 Blood - Blood Blood Culture Gram Stain - Final 12/26/19 08:52 Blood - Blood Anaerobic Blood Culture - Final No growth in 5 days. 12/26/19 08:50 Blood - Blood Aerobic Blood Culture - Final No growth in 5 days. 12/26/19 08:50 Blood - Blood Anaerobic Blood Culture - Final No growth in 5 days. Medications List Reviewed: Yes Assessment & Plan Discharge Plan: Other (SNF) Plan to discharge in: 48 Hours Physician Review Additional Text: Impression: Toxic encephalopathy with UTI-urine culture positive for E coli Hypertension Diabetes mellitus type 2 Dementia Plan: Toxic encephalopathy with UTI-urine culture positive for E coli: Continue oral- antibiotic. Will have physical therapy assess ambulation. Will discuss with family about skilled placement. Family also looking in to possible long-term care. Speech was consulted to evaluate for possible dysphagia. No aspiration noted. Continue with recommendations. Hypertension: Continue medication Diabetes mellitus type 2: Sliding scale in place. Dementia: Patient appears to be at her baseline level. Time Spent Managing Pts Care (In Minutes): 55
[2019-12-31] MEDS: ATORVASTATIN 10 MG TAB PO SCH (20:02)
[2019-12-31] MEDS: ALPRAZOLAM 0.25 MG TABLET PO PRN (20:25)
[2020-01-01] MEDS ORDERED: POTASSIUM 25 MEQ EFFERV TAB PO ONE (00:28)
[2020-01-01] MEDS: HYDRALAZINE HCL 20 MG/ML VIAL IV PRN ×2 (00:53→09:16)
[2020-01-01] MEDS ORDERED: TRAMADOL HCL 50 MG TAB PO PRN (06:12)
[2020-01-01] MEDS: METOPROLOL TAR 50 MG TAB PO SCH ×2 (06:23→17:10)
[2020-01-01] MEDS: LEVOTHYROXINE SOD 0.075 MG TAB PO SCH (06:23)
[2020-01-01 06:42] LABS: BUN Blood Urea Nitrogen 4 mg/dL (7-18); Bicarbonate 25 mmol/L (21-32); Glucose Level 122 mg/dL (74-106); Magnesium 1.7 mg/dL (1.8-2.4); Sodium Level 141 mmol/L (136-145)
[2020-01-01] MEDS ORDERED: MAGNESIUM SULFATE 1 gm IVPB 1 GM/100 ML BAG IV ONE (06:53)
[2020-01-01] MEDS: GLUCERNA SHAKE 237 ML CAN PO SCH ×2 (09:00→21:04)
[2020-01-01] MEDS: PANTOPRAZOLE 40MG TABLET PO SCH ×3 (09:00→21:03)
[2020-01-01] MEDS: CEPHALEXIN 500 MG CAP PO SCH ×2 (09:16→21:03)
[2020-01-01] MEDS: PARoxetine HCL 10 MG TAB PO SCH (09:16)
[2020-01-01] MEDS: SUCRALFATE 1 GM TABLET PO SCH ×4 (09:16→21:04)
[2020-01-01] MEDS: BENAZEPRIL 10 MG TAB PO SCH (09:16)
[2020-01-01] MEDS: ENOXAPARIN 40 MG/0.4 ML SQ SCH (09:17)
[2020-01-01] MEDS: MULTIVITAMIN TAB PO SCH (09:17)
--- NOTE | 2020-01-01 13:05 | P.PN ---
Subjective Date of Service: 01/01/20 Chief Complaint: Altered mental status Subjective: Improving, Demented Physical Examination - Vital Signs Temperature: 97.9 F Blood Pressure: 183/81 Pulse: 73 Respirations: 18 Pulse Ox (%): 96 - Physical Exam General: Alert, Cooperative, Demented HEENT: Atraumatic Neck: Supple Respiratory: Clear to auscultation bilaterally, Normal air movement Cardiovascular: Normal pulses, Regular rate/rhythm Gastrointestinal: Normal bowel sounds, Soft and benign, Non-distended Neurological: Normal speech, Normal strength at 5/5 x4 extr, Normal tone, Dementia - Studies Microbiology Data (last 24 hrs): 12/26/19 08:52 Blood - Blood Aerobic Blood Culture - Final 12/26/19 08:52 Blood - Blood Blood Culture Gram Stain - Final 12/26/19 08:52 Blood - Blood Anaerobic Blood Culture - Final No growth in 5 days. 12/26/19 08:50 Blood - Blood Aerobic Blood Culture - Final No growth in 5 days. 12/26/19 08:50 Blood - Blood Anaerobic Blood Culture - Final No growth in 5 days. Medications List Reviewed: Yes Assessment & Plan Discharge Plan: Other (Skilled placement facility) Plan to discharge in: 24 Hours Physician Review Additional Text: Impression: Toxic encephalopathy with UTI-urine culture positive for E coli Hypertension Diabetes mellitus type 2 Dementia Plan: Toxic encephalopathy with UTI-urine culture positive for E coli: Continue oral- antibiotic for 7 days. Continue with physical therapy. Family has discuss with case management and social research assistant to help in skilled placement. Family also looking in to possible long-term care. Speech was consulted to evaluate for possible dysphagia. No aspiration noted. Continue with recommendations. Hypertension: Continue medication. Blood pressure still elevated. Will monitor and adjust appropriately. Diabetes mellitus type 2: Sliding scale in place. Overall stable. Dementia: Patient appears to be at her baseline level. Time Spent Managing Pts Care (In Minutes): 55
[2020-01-01] MEDS: METFORMIN ER 500 MG TAB PO SCH (17:11)
[2020-01-01] MEDS: ATORVASTATIN 10 MG TAB PO SCH (21:04)
[2020-01-01] MEDS ORDERED: SODIUM CHLORIDE 0.9% 10ML INJ IV PRN (21:10)
[2020-01-01] MEDS: PANTOPRAZOLE 40 MG INJ IVP SCH (21:43)
[2020-01-02 04:00] LABS: BUN Blood Urea Nitrogen 5 mg/dL (7-18); Bicarbonate 27 mmol/L (21-32); Glucose Level 123 mg/dL (74-106); Magnesium 1.7 mg/dL (1.8-2.4); Potassium 3.5 mmol/L (3.5-5.1); Sodium Level 142 mmol/L (136-145)
[2020-01-02] MEDS: METOPROLOL TAR 50 MG TAB PO SCH ×2 (05:22→17:40)
[2020-01-02] MEDS: LEVOTHYROXINE SOD 0.075 MG TAB PO SCH (05:23)
[2020-01-02] MEDS ORDERED: BENAZEPRIL 20 MG TAB PO SCH (09:00)
[2020-01-02] MEDS: GLUCERNA SHAKE 237 ML CAN PO SCH (09:00)
[2020-01-02 09:05] VITALS: O2SAT 94
[2020-01-02] MEDS: CEPHALEXIN 500 MG CAP PO SCH (09:11)
[2020-01-02] MEDS: SUCRALFATE 1 GM TABLET PO SCH ×3 (09:11→16:21)
[2020-01-02] MEDS: PARoxetine HCL 10 MG TAB PO SCH (09:11)
[2020-01-02] MEDS: MULTIVITAMIN TAB PO SCH (09:11)
[2020-01-02] MEDS: PANTOPRAZOLE 40 MG INJ IVP SCH (09:11)
[2020-01-02] MEDS: ENOXAPARIN 40 MG/0.4 ML SQ SCH (09:11)
[2020-01-02] MEDS: METFORMIN ER 500 MG TAB PO SCH ×2 (09:11→16:21)
--- NOTE | 2020-01-02 14:27 | P.PN ---
Subjective Date of Service: 01/02/20 Chief Complaint: Altered mental status Subjective: Doing well, Demented Physical Examination - Vital Signs Temperature: 97.2 F Blood Pressure: 153/70 Pulse: 73 Respirations: 15 Pulse Ox (%): 95 - Physical Exam General: Alert, Demented HEENT: Atraumatic Neck: Supple Respiratory: Clear to auscultation bilaterally, Normal air movement Cardiovascular: Normal pulses, Regular rate/rhythm Gastrointestinal: Normal bowel sounds, Soft and benign, Non-distended Neurological: Normal speech, Normal strength at 5/5 x4 extr, Normal tone, Dementia - Studies Medications List Reviewed: Yes Assessment & Plan Discharge Plan: Other (Skilled placement) Plan to discharge in: 24 Hours Physician Review Additional Text: Impression: Toxic encephalopathy with UTI-urine culture positive for E coli Hypertension Diabetes mellitus type 2 Dementia Plan: Toxic encephalopathy with UTI-urine culture positive for E coli: Continue oral- antibiotic for 7 days. Continue with physical therapy. Family has discussed with case management and social insurance analyst to help in skilled placement. Still looking to pursue skilled placement. Currently awaiting approval for skilled placement. Hypertension: Continue medication. Blood pressure still elevated. Will monitor and adjust appropriately. Diabetes mellitus type 2: Sliding scale in place. Overall stable. Dementia: Patient appears to be at her baseline level. Time Spent Managing Pts Care (In Minutes): 55
--- NOTE | 2020-01-02 14:41 | P.DS ---
Admission Date: 12/26/19 Discharge Date: 01/02/20 Primary Care Provider: unknown Disposition: TRANSFER TO SNF - MEDICAL Discharge Condition: GOOD Reason for Admission: Altered mental status Consultations: Neurology-Dr. Ge Procedures: CT Chest: FINDINGS: Large hiatal hernia The liver, spleen, pancreas, adrenal and kidneys appear unremarkable. There is no evidence of diverticulitis. Marked compression fractures involving the T9 and T12 vertebral bodies are unchanged. Multiple subacute and old rib fractures IMPRESSION: No acute abnormality is displayed. CT Brain: FINDINGS: An intracranial bleed is not seen . Cerebral atrophy is present. No extra-axial fluid collection is noted. Small low-density area within the left thalamus likely old lacunar infarction Moderate to marked low-density areas within periventricular, deep and subcortical white matter likely represent ischemic changes secondary to small vessel disease. Fluid left maxillary sinus may indicate acute sinusitis IMPRESSION: No acute intracranial abnormality is seen. . MRI Brain: FINDINGS: Examination is limited by patient motion artifact. Significant periventricular and deep white matter T2 and FLAIR hyperintensity is present presumably related to chronic microvascular ischemic changes. No gross intracranial hemorrhage.No intracranial mass. No gross evidence of acute infarction.. Post-contrast sequences show no gross pathologic enhancement. IMPRESSION: Exam is quite limited by excessive patient motion. Within this limitation, there is no gross acute finding such as CVA. No pathologic post-contrast enhancement suspected. ECHO: EF 56% LEFT VENTRICULAR WALL MOTION: NORMAL. DOPPLER/COLOR FLOW: NORMAL. COMMENTS: TECHNICALLY DIFFICULT STUDY. AORTIC SCLEROSIS NO STENOSIS. MITRAL ANNULAR CALCIFICATION. NORMAL EJECTION FRACTION. NO WALL MOTION ABNORMALITY. Impression: Toxic encephalopathy with UTI-urine culture positive for E coli Hypertension Diabetes mellitus type 2 Dementia GERD with Hiatal hernia B12 deficiency Hypothyroidism Hyperlipidemia Brief History of Present Illness: 79-year-old female with history of dementia presented with confusion. Patient found to have UTI. Patient was admitted for further evaluation and treatment. Hospital Course: Patient presented with confusion secondary to toxic encephalopathy related to UTI. This was complicated as the patient has underlying advanced dementia. Patient found to have E coli in the urine. Patient was further evaluated by Neurology. MRI brain, CT brain showed no acute stroke. Echocardiogram unremarkable. Patient was also evaluated for dysphagia. No evidence of aspiration noted. Patient continued to do well on antibiotic therapy. Patient now back to baseline. Patient has finish course of antibiotic therapy. Patient was evaluated for skilled placement. Patient has been approved. Patient will go to skilled placement to continue her care. Patient will likely require long- term care in the future due to her dementia. This [facility]. UTI prevention will be provided. Patient may follow up with neurology as an outpatient to further monitor and address her dementia. Patient with hypertension. Blood pressure was elevated. New medication provided included metoprolol. Blood pressure now better controlled. At discharge she will continue with current medication-benazepril 10 mg daily and metoprolol 50 mg 1 pill twice daily. Recommend to maintain blood pressure less 150/80. Further adjustment can be done by her PCP. Patient with diabetes mellitus type 2. This remained stable. Continue with current medication metformin 500 mg 1 pill twice daily. Recommend to maintain blood sugar less than 140 fasting and less than 200 after meals. Further adjustment can be done by her PCP. Patient with GERD and hiatal hernia. This has remained stable. At discharge she may continue with current medication of Protonix 40 mg 1 pill twice daily and sucralfate 4 times a day. Patient with hypothyroidism. This remained stable. At discharge she will continue with levothyroxine 75 mcg daily. Patient with hyperlipidemia. This remained stable. At discharge she will continue with Zocor 20 mg daily. Patient with depression. At discharge she will continue with Paxil 10 mg daily. Patient with B12 deficiency. At discharge she will continue with B12 supplementation and multi vitamin. Patient with chronic pain. Patient may continue with hydrocodone as needed. This should be limited. Tylenol may also be used. Recommend no further use of nonsteroidal anti-inflammatories especially with her history of GERD/hiatal hernia. Other considerations include tramadol 50 mg 3 times a day as needed for pain in the future. Vital Signs/Physical Exam: Temp Pulse Resp BP Pulse Ox 97.2 F 73 15 153/70 H 95 01/02/20 14:27 01/02/20 14:27 01/02/20 14:27 01/02/20 14:27 01/02/20 14:27 General: Alert, Cooperative, Demented HEENT: Atraumatic Neck: Supple Respiratory: Clear to auscultation bilaterally, Normal air movement Cardiovascular: Normal pulses, Regular rate/rhythm Gastrointestinal: Normal bowel sounds, Soft and benign, Non-distended, No masses, No rebound, No guarding Neurological: Normal speech, Normal strength at 5/5 x4 extr, Normal tone, Normal affect Laboratory Data at Discharge: WBC 7.1 K/uL (4.3-10.9) D 12/30/19 06:51 Hgb 11.4 g/dL (12.0-15.0) L 12/30/19 06:51 Hct 33.2 % (36.0-45.0) L 12/30/19 06:51 Plt Count 435 K/uL (152-406) H 12/30/19 06:51 PT 11.8 SECONDS (9.5-12.5) 12/27/19 03:35 INR 1.00 12/27/19 03:35 APTT 29.3 SECONDS (24.3-36.9) 12/27/19 03:35 Sodium 142 mmol/L (136-145) 01/02/20 03:19 Potassium 3.5 mmol/L (3.5-5.1) 01/02/20 03:19 BUN 5 mg/dL (7-18) L 01/02/20 03:19 Creatinine 0.59 mg/dL (0.55-1.3) 01/02/20 03:19 Glucose 123 mg/dL (74-106) H 01/02/20 03:19 Phosphorus 2.7 mg/dL (2.5-4.9) 12/27/19 03:35 Magnesium 1.7 mg/dL (1.8-2.4) L 01/02/20 03:19 Total Bilirubin 0.6 mg/dL (0.2-1.0) 12/27/19 03:35 AST 18 U/L (15-37) 12/27/19 03:35 ALT 11 U/L (12-78) L 12/27/19 03:35 Alkaline Phosphatase 85 U/L (45-117) 12/27/19 03:35 Troponin I 0.05 ng/mL (0.0-0.045) H 12/27/19 00:09 Lipase 160 U/L (73-393) 12/26/19 08:50 Home Medications: Benazepril HCl [Lotensin*] 10 mg PO DAILY 06/04/12 Metformin ER [Glucophage ER*] 500 mg PO BIDWM 06/04/12 Simvastatin 20 mg PO DAILY 06/04/12 Multivitamin [Multiple Vitamins] 1 each PO DAILY #0 tablet 06/08/12 Alendronate Sodium 70 mg PO ONCE 02/17/17 PARoxetine HCL [Paxil*] 10 mg PO DAILY 02/17/17 Pantoprazole Sodium [Protonix] 40 mg PO BID 02/17/17 Sucralfate [Carafate*] 1 gm PO QID 02/17/17 Hydrocodone/Acetaminophen [[place] 5-325 Tablet] 1 each PO Q8HP PRN #30 tablet 02/18/17 Cyanocobalamin (Vitamin B-12) [Cyanocobalamin Injection] 1,000 mcg IJ UD 12/26/19 Levothyroxine [Synthroid*] 75 mcg PO [id number] 12/26/19 Metoprolol Tartrate [Lopressor*] 50 mg PO BID 6AM 6PM #60 tab 01/02/20 New Medications: Metoprolol Tartrate [Lopressor*] 50 mg PO BID 6AM 6PM #60 tab Patient Discharge Instructions: 1. Patient to go to skilled facility to continue care. 2. Patient presented with confusion secondary to toxic encephalopathy related to UTI. This was complicated as the patient has underlying advanced dementia. Patient found to have E coli in the urine. Patient was further evaluated by Neurology. MRI brain, CT brain showed no acute stroke. Echocardiogram unremarkable. Patient was also evaluated for dysphagia. No evidence of aspiration noted. Patient continued to do well on antibiotic therapy. Patient now back to baseline. Patient has finish course of antibiotic therapy. Patient was evaluated for skilled placement. Patient has been approved. Patient will go to skilled placement to continue her care. Patient will likely require long-term care in the future due to her dementia. This [facility] be [facility]. UTI prevention will be provided. Patient may follow up with neurology as an outpatient to further monitor and address her dementia. 3. Patient with hypertension. Blood pressure was elevated. New medication provided included metoprolol. Blood pressure now better controlled. At discharge she will continue with current medication-benazepril 10 mg daily and metoprolol 50 mg 1 pill twice daily. Recommend to maintain blood pressure less 150/80. Further adjustment can be done by her PCP. 4. Patient with diabetes mellitus type 2. This remained stable. Continue with current medication metformin 500 mg 1 pill twice daily. Recommend to maintain blood sugar less than 140 fasting and less than 200 after meals. Further adjustment can be done by her PCP. 5. Patient with GERD and hiatal hernia. This has remained stable. At discharge she may continue with current medication of Protonix 40 mg 1 pill twice daily and sucralfate 4 times a day. 6. Patient with hypothyroidism. This remained stable. At discharge she will continue with levothyroxine 75 mcg daily. 7. Patient with hyperlipidemia. This remained stable. At discharge she will continue with Zocor 20 mg daily. 8. Patient with depression. At discharge she will continue with Paxil 10 mg daily. 9. Patient with B12 deficiency. At discharge she will continue with B12 supplementation and multi vitamin. 10. Patient with chronic pain. Patient may continue with hydrocodone as needed. This should be limited. Tylenol may also be used. Recommend no further use of nonsteroidal anti-inflammatories especially with her history of GERD/hiatal hernia. Other considerations include tramadol 50 mg 3 times a day as needed for pain in the future. Diet: Pureed diet Activity: Fall precautions Time spent managing pt's care (in minutes): 55
[2020-01-02] MEDS ORDERED: PANTOPRAZOLE 40MG TABLET PO SCH (16:30)
[2020-01-02 16:54] VITALS: BP 128/59; TEMP 98.5
[2020-01-02] MEDS ORDERED: POTASSIUM CL SA 10 MEQ TAB PO ONE (17:00)
[2020-01-02] MEDS ORDERED: MAGNESIUM SULFATE 1 gm IVPB 1 GM/100 ML BAG IV ONE (17:00)
== END 2020-01-02 18:59 | DRG 689 ==
LOC: ER 08:07 → ERHOLD 11:18 → 4TH 13:10
PROVIDERS: ADMIT Hospitalist; ATTEND Family Medicine
DX: N39.0 Urinary tract infection, site not specified (principal); E43 Unspecified severe protein-calorie malnutrition; G92 Toxic encephalopathy; Z68.1 Body mass index [BMI] 19.9 or less, adult; R78.81 Bacteremia; B96.20 Unspecified Escherichia coli [E. coli] as the cause of diseases classified elsewhere; Z88.1 Allergy status to other antibiotic agents; Z79.899 Other long term (current) drug therapy; Z79.84 Long term (current) use of oral hypoglycemic drugs; I10 Essential (primary) hypertension; E03.9 Hypothyroidism, unspecified; Z79.890 Hormone replacement therapy; E11.9 Type 2 diabetes mellitus without complications; E78.5 Hyperlipidemia, unspecified; Z90.49 Acquired absence of other specified parts of digestive tract; R10.9 Unspecified abdominal pain; R55 Syncope and collapse; R50.9 Fever, unspecified; G89.29 Other chronic pain; M54.9 Dorsalgia, unspecified; F01.50 Vascular dementia, unspecified severity, without behavioral disturbance, psychotic disturbance, mood disturbance, and anxiety; M40.209 Unspecified kyphosis, site unspecified; R13.10 Dysphagia, unspecified; Z66 Do not resuscitate; K21.9 Gastro-esophageal reflux disease without esophagitis; K44.9 Diaphragmatic hernia without obstruction or gangrene; E53.8 Deficiency of other specified B group vitamins; Z20.828 Contact with and (suspected) exposure to other viral communicable diseases
CPT/HCPCS: 36415; 51702; 70450; 70553; 71045; 74177; 74230; 80048; 80053; 80076; 80202; 81003; 81015; 82565; 82947; 83605; 83690; 83735; 83880; 84100; 84132; 84145; 84484; 85025; 85610; 85730; 87040; 87077; 87086; 87088; 87186; 87205; 92610; 92611; 93005; 93306; 95819; 97116; 97161; 97530; 99285; A9577; C9113; J0360; J0696; J1650; J3370; J3475; J3480; J7030; J7040; Q9967; U0002